=== PATIENT | female | born 1955 | race Caucasian/White ===

== ENCOUNTER 2017-10-09 04:50 | Outpatient (CLI) | payer OTHER ==
[~2017-10-09 04:50] MED LIST: AMLO2.5T2 PO; CYT5T PO; HYDR-3968 PO; LEVO125T69 PO; LOSA25TA96 PO; OMEG10006 PO; PRAS25CA7 PO; PROG200C7 PO; TESTOSTERONE CREAM TOP; [UNRECOGNIZED DRUG - CODE] PO; [UNRECOGNIZED DRUG - OTHER] PO
== END 2017-10-09 23:59 | disposition home or self-care (01) ==
LOC: DIABETIC 04:50
PROVIDERS: ATTEND Specialist
DX: R73.01 Impaired fasting glucose (principal); R06.3 Periodic breathing; E78.2 Mixed hyperlipidemia; I10 Essential (primary) hypertension; Z87.891 Personal history of nicotine dependence; Z86.19 Personal history of other infectious and parasitic diseases
CPT/HCPCS: G0108

== ENCOUNTER 2019-02-20 17:48 | Emergency (ER) | payer OTHER ==
[~2019-02-20] VITALS: Ht 157.5 cm; Wt 65.0 kg
[~2019-02-20 17:48] MED LIST changes: +BISA-155 PO; +MAGN296S50 PO; +PROG200C11 PO; -PROG200C7 PO
[2019-02-20 18:37] LABS: BASOPHILS % (AUTO) 0.9 % (0-1); EOSINOPHILS # (AUTO) 0.1 X10'3 (0-0.9); EOSINOPHILS % (AUTO) 1.2 % (0-6); HEMATOCRIT 40.1 % (35.0-45.0); HEMOGLOBIN 13.7 g/dl (12.0-16.0); LYMPHOCYTES # (AUTO) 2.2 X10'3 (1.1-4.8); MEAN CORPUSCULAR HEMOGLOBIN 31.2 PG (27.0-31.0); MEAN CORPUSCULAR HGB CONC 34.1 g/dL (33.0-36.5); MEAN CORPUSCULAR VOLUME 91.4 FL (78-98); MEAN PLATELET VOLUME 6.9 FL (7.4-10.4); MONOCYTES # (AUTO) 0.2 X10'3 (0-0.9); MONOCYTES % (AUTO) 3.2 % (2-12); NEUTROPHILS # (AUTO) 3.1 X10'3 (1.8-7.7); NEUTROPHILS % (AUTO) 55.7 % (42-75); PLATELET COUNT 322 X10'3 (140-440); RED BLOOD COUNT 4.39 X10'6 (4.20-5.60); RED CELL DISTRIBUTION WIDTH 13.9 % (11.5-14.5); WHITE BLOOD COUNT 5.5 X10'3 (4.5-11.0)
[2019-02-20 18:46] LABS: URINE HCG NEGATIVE (NEG)
[2019-02-20] MEDS ORDERED: LORazepam 1 MG tablet PO ONE (18:50)
[2019-02-20] MEDS ORDERED: acetaminophen 325mg tablet PO ONE (18:50)
[2019-02-20 18:54] LABS: ALANINE AMINOTRANSFERASE 46 U/L (12-78); ALKALINE PHOSPHATASE 67 IU/L (46-116); ANION GAP 13 (8-16); ASPARTATE AMINO TRANSFERASE 50 U/L (10-37); BILIRUBIN,TOTAL 0.3 MG/DL (0.1-1.0); BLOOD UREA NITROGEN 27 MG/DL (7-18); BUN/CREATININE RATIO 21.3 (6.6-38.0); CALCIUM 8.8 MG/DL (8.5-10.1); CHLORIDE 109 MMOL/L (99-107); CREATININE 1.27 MG/DL (0.40-0.90); GLUCOSE 96 MG/DL (70-104); POTASSIUM 3.9 MMOL/L (3.5-5.1); SODIUM 144 MMOL/L (135-145); TOTAL CARBON DIOXIDE 22.2 MMOL/L (24-32); TOTAL PROTEIN 8.1 G/DL (6.4-8.2); eGFR 43 ML/MIN
[2019-02-20 18:57] LABS: URINE AMPHETAMINE SCREEN NEGATIVE (Neg); URINE BARBITUATE SCREEN NEGATIVE (Neg); URINE BENZODIAZEPINES SCREEN NEGATIVE (Neg); URINE CANNABINOID SCREEN POSITIVE (Neg); URINE COCAINE SCREEN NEGATIVE (Neg); URINE METHADONE SCREEN NEGATIVE (Neg); URINE OPIATE SCREEN NEGATIVE (Neg); URINE PHENCYCLIDINE SCREEN NEGATIVE (Neg)
[2019-02-20 18:59] LABS: ETHANOL 0.294 GM/DL (0.0-0.010)
[2019-02-20] MEDS ORDERED: LEVO137T2 PO (19:07)
--- NOTE | 2019-02-20 20:00 | NUR ---
Packet faxed to [facility]. Confirmed receipt of packet with Karissa @ [facility] office.
[2019-02-20] MEDS ORDERED: ketorolac trometh inj. 60 MG/2 ML VIAL IM ONE (20:05)
--- NOTE | 2019-02-20 20:13 | NUR ---
pt was frustrated with pt next to her and threatened to "take her out" if she didn't shut up. pt moved to bed 23
--- NOTE | 2019-02-21 00:31 | NUR ---
pt is sleeping, rr unlabored, will continue to monitor
--- NOTE | 2019-02-21 01:19 | NUR ---
pt is sleeping, rr unlabored, will continue to monitor
--- NOTE | 2019-02-21 02:12 | NUR ---
Pt asleep on her back in no apparent distress. Respirations are even and unlabored.
[2019-02-21] MEDS ORDERED: ondansetron 4mg rapidly disintigrating tab PO ONE ×2 (03:00→08:10)
[2019-02-21 05:30] VITALS: BP 166/85
--- NOTE | 2019-02-21 06:28 | NUR ---
Patient sleeping on left side. No distress observed. Continue to monitor.
[2019-02-21] MEDS ORDERED: levoTHYROXINE 112mcg tablet PO SCH (07:00)
[2019-02-21] MEDS ORDERED: levoTHYROXINE 25mcg tablet PO SCH (07:00)
--- NOTE | 2019-02-21 07:41 | NUR ---
Patient ambulatory to BR, steady gait.
--- NOTE | 2019-02-21 07:48 | NUR ---
Staff heard patient with emesis in BR. RN to ask for Zofran. Continue to monitor.
--- NOTE | 2019-02-21 07:55 | NUR ---
Patient awake and alert. Patient denies SI/HI at this time. States she was just down and intoxicated. Patient states she has moral support. Continue to monitor.
[2019-02-21] MEDS ORDERED: losartan 50mg tablet PO SCH (08:00)
[2019-02-21] MEDS ORDERED: amLODIPine 5mg tablet PO SCH (08:00)
--- NOTE | 2019-02-21 08:40 | NUR ---
[facility], [place], evaluating patient.
== END 2019-02-21 09:30 | disposition home or self-care (01) ==
LOC: ER 17:50
DX: R45.851 Suicidal ideations (principal); F10.920 Alcohol use, unspecified with intoxication, uncomplicated; I12.9 Hypertensive chronic kidney disease with stage 1 through stage 4 chronic kidney disease, or unspecified chronic kidney disease; N18.9 Chronic kidney disease, unspecified; G89.29 Other chronic pain; F41.9 Anxiety disorder, unspecified; F32.9 Major depressive disorder, single episode, unspecified; F17.210 Nicotine dependence, cigarettes, uncomplicated; E03.9 Hypothyroidism, unspecified; Z90.49 Acquired absence of other specified parts of digestive tract; Z90.710 Acquired absence of both cervix and uterus; Z98.51 Tubal ligation status; Z98.890 Other specified postprocedural states; Z86.19 Personal history of other infectious and parasitic diseases; Z88.2 Allergy status to sulfonamides; Z79.899 Other long term (current) drug therapy; Y90.0 Blood alcohol level of less than 20 mg/100 ml
CPT/HCPCS: 36415; 80053; 80305; 80320; 81025; 84443; 85025; 96372; 99285; J1885

== ENCOUNTER 2019-05-29 15:19 | Emergency (ER) | payer OTHER ==
[~2019-05-29] VITALS: Ht 157.5 cm; Wt 60.0 kg
[~2019-05-29 15:19] MED LIST changes: -BISA-155 PO; -CYT5T PO; -HYDR-3968 PO; -LEVO125T69 PO; +LEVO137T2 PO; -MAGN296S50 PO; -OMEG10006 PO; -PRAS25CA7 PO; -PROG200C11 PO; -TESTOSTERONE CREAM TOP; -[UNRECOGNIZED DRUG - CODE] PO; -[UNRECOGNIZED DRUG - OTHER] PO
[2019-05-29 15:58] LABS: BASOPHILS # (AUTO) 0.1 X10'3 (0-0.2); BASOPHILS % (AUTO) 1.2 % (0-1); EOSINOPHILS % (AUTO) 0.5 % (0-6); HEMATOCRIT 42.7 % (35.0-45.0); HEMOGLOBIN 14.7 g/dl (12.0-16.0); LYMPHOCYTES % (AUTO) 26.8 % (21-51); MEAN CORPUSCULAR HEMOGLOBIN 31.7 PG (27.0-31.0); MEAN CORPUSCULAR HGB CONC 34.5 g/dL (33.0-36.5); MEAN PLATELET VOLUME 7.6 FL (7.4-10.4); MONOCYTES # (AUTO) 0.3 X10'3 (0-0.9); MONOCYTES % (AUTO) 4.5 % (2-12); PLATELET COUNT 310 X10'3 (140-440); RED BLOOD COUNT 4.64 X10'6 (4.20-5.60); RED CELL DISTRIBUTION WIDTH 13.9 % (11.5-14.5); WHITE BLOOD COUNT 7.5 X10'3 (4.5-11.0)
[2019-05-29 16:05] LABS: ALANINE AMINOTRANSFERASE 39 U/L (12-78); ALBUMIN 4.6 G/DL (3.4-5.0); ALBUMIN/GLOBULIN RATIO 1.2 (1.1-1.5); ALKALINE PHOSPHATASE 77 IU/L (46-116); ANION GAP 14 (8-16); ASPARTATE AMINO TRANSFERASE 31 U/L (10-37); BILIRUBIN,TOTAL 0.6 MG/DL (0.1-1.0); BLOOD UREA NITROGEN 21 MG/DL (7-18); BUN/CREATININE RATIO 15.4 (6.6-38.0); CALCIUM 10.4 MG/DL (8.5-10.1); CHLORIDE 100 MMOL/L (99-107); CREATININE 1.36 MG/DL (0.40-0.90); ETHANOL < 0.010 GM/DL (0.0-0.010); GLUCOSE 132 MG/DL (70-104); POTASSIUM 4.1 MMOL/L (3.5-5.1); SODIUM 139 MMOL/L (135-145); TOTAL CARBON DIOXIDE 25.3 MMOL/L (24-32); TOTAL PROTEIN 8.6 G/DL (6.4-8.2); eGFR 39 ML/MIN
[2019-05-29] MEDS ORDERED: normal saline 1000ml 1,000 ML IV ONE (16:10)
[2019-05-29] MEDS ORDERED: diphenhydrAMINE 50 mg/ml inj IV ONE (16:35)
[2019-05-29] MEDS ORDERED: proCHLORperazine 10 MG/2 ml inj IV ONE (16:35)
[2019-05-29 16:39] LABS: LIPASE 190 U/L (73-393)
[2019-05-29 18:20] LABS: CLARITY,URINE CLEAR (Clear); COLOR,URINE YELLOW (Yellow); GLUCOSE, URINE NEGATIVE (Neg); KETONES,URINE TRACE mg/dl (Neg); LEUKOCYTE ESTERASE ,URINE NEGATIVE (Neg); NITRITES, URINE NEGATIVE (Neg); OCCULT BLOOD,URINE TRACE-INTACT (Neg); PH,URINE 7.5 (4.8-8.0); PROTEIN,URINE 100 mg/dl (Neg); UROBILINOGEN,URINE 0.2 E.U/dL (0.2-1.0)
[2019-05-29 18:25] LABS: UA COLLECTION TYPE CLN CATCH MIDSTREAM
[2019-05-29 18:28] LABS: BACTERIA,URINE NONE SEEN /HPF (Neg); MUCUS STRANDS NONE SEEN /LPF (Neg); RBC,URINE 0-2 /HPF (0-2); SQUAMOUS EPITHELIAL CELL,UR FEW /LPF (FEW); TRANSITIONAL EPI CELLS,URINE FEW /HPF; WBC,URINE 0-4 /HPF (0-4)
[2019-05-29 18:31] LABS: URINE AMPHETAMINE SCREEN NEGATIVE (Neg); URINE BARBITUATE SCREEN NEGATIVE (Neg); URINE BENZODIAZEPINES SCREEN NEGATIVE (Neg); URINE CANNABINOID SCREEN POSITIVE (Neg); URINE COCAINE SCREEN NEGATIVE (Neg); URINE METHADONE SCREEN NEGATIVE (Neg); URINE OPIATE SCREEN NEGATIVE (Neg); URINE PHENCYCLIDINE SCREEN NEGATIVE (Neg)
[2019-05-29] MEDS ORDERED: FAMO-128 PO (18:33)
[2019-05-29] MEDS ORDERED: ONDA4TAB6 PO (18:33)
[2019-05-29 18:44] VITALS: BP 170/85
== END 2019-05-29 18:45 | disposition home or self-care (01) ==
LOC: ER 15:19
DX: K29.20 Alcoholic gastritis without bleeding (principal); F10.10 Alcohol abuse, uncomplicated; I12.9 Hypertensive chronic kidney disease with stage 1 through stage 4 chronic kidney disease, or unspecified chronic kidney disease; N18.9 Chronic kidney disease, unspecified; F32.9 Major depressive disorder, single episode, unspecified; F41.9 Anxiety disorder, unspecified; G89.29 Other chronic pain; Z90.49 Acquired absence of other specified parts of digestive tract; Z90.710 Acquired absence of both cervix and uterus; Z98.51 Tubal ligation status; Z98.890 Other specified postprocedural states; Z88.2 Allergy status to sulfonamides; Z79.899 Other long term (current) drug therapy; Y90.0 Blood alcohol level of less than 20 mg/100 ml
CPT/HCPCS: 36415; 80053; 80305; 80320; 81001; 83690; 85025; 96361; 96374; 96375; 99283; J0780; J1200; J7030

== ENCOUNTER 2019-08-18 11:28 | Emergency (ER) | payer OTHER ==
[~2019-08-18] VITALS: Ht 157.5 cm; Wt 68.7 kg
[~2019-08-18 11:28] MED LIST changes: +FAMO-128 PO; +ONDA4TAB6 PO
[2019-08-18 11:39] VITALS: BP 148/77
[2019-08-18 12:03] LABS: BASOPHILS # (AUTO) 0.1 X10'3 (0-0.2); BASOPHILS % (AUTO) 1.2 % (0-1); EOSINOPHILS # (AUTO) 0.3 X10'3 (0-0.9); EOSINOPHILS % (AUTO) 5.4 % (0-6); HEMATOCRIT 38.4 % (35.0-45.0); HEMOGLOBIN 13.2 g/dl (12.0-16.0); LYMPHOCYTES # (AUTO) 1.4 X10'3 (1.1-4.8); MEAN CORPUSCULAR HGB CONC 34.3 g/dL (33.0-36.5); MEAN CORPUSCULAR VOLUME 90.5 FL (78-98); MEAN PLATELET VOLUME 7.6 FL (7.4-10.4); MONOCYTES # (AUTO) 0.2 X10'3 (0-0.9); MONOCYTES % (AUTO) 4.9 % (2-12); NEUTROPHILS # (AUTO) 2.9 X10'3 (1.8-7.7); NEUTROPHILS % (AUTO) 59.5 % (42-75); PLATELET COUNT 295 X10'3 (140-440); RED BLOOD COUNT 4.25 X10'6 (4.20-5.60); RED CELL DISTRIBUTION WIDTH 13.7 % (11.5-14.5); WHITE BLOOD COUNT 4.8 X10'3 (4.5-11.0)
[2019-08-18 12:22] LABS: ALANINE AMINOTRANSFERASE 32 U/L (12-78); ALBUMIN 3.8 G/DL (3.4-5.0); ALKALINE PHOSPHATASE 71 IU/L (46-116); ANION GAP 14 (8-16); ASPARTATE AMINO TRANSFERASE 30 U/L (10-37); BILIRUBIN,TOTAL 0.2 MG/DL (0.1-1.0); BLOOD UREA NITROGEN 25 MG/DL (7-18); BUN/CREATININE RATIO 19.1 (6.6-38.0); CALCIUM 9.2 MG/DL (8.5-10.1); CHLORIDE 106 MMOL/L (99-107); CREATININE 1.31 MG/DL (0.40-0.90); GLUCOSE 113 MG/DL (70-104); LIPASE 141 U/L (73-393); POTASSIUM 4.5 MMOL/L (3.5-5.1); SODIUM 142 MMOL/L (135-145); TOTAL CARBON DIOXIDE 22.1 MMOL/L (24-32); TOTAL PROTEIN 7.6 G/DL (6.4-8.2); eGFR 41 ML/MIN
[2019-08-18 14:16] LABS: CLARITY,URINE CLEAR (Clear); COLOR,URINE YELLOW (Yellow); GLUCOSE, URINE NEGATIVE (Neg); KETONES,URINE NEGATIVE (Neg); LEUKOCYTE ESTERASE ,URINE NEGATIVE (Neg); NITRITES, URINE NEGATIVE (Neg); OCCULT BLOOD,URINE NEGATIVE (Neg); PROTEIN,URINE 100 mg/dl (Neg); UROBILINOGEN,URINE 0.2 E.U/dL (0.2-1.0)
[2019-08-18 14:21] LABS: UA COLLECTION TYPE CLN CATCH MIDSTREAM
[2019-08-18 14:29] LABS: BACTERIA,URINE NONE SEEN /HPF (Neg); MUCUS STRANDS NONE SEEN /LPF (Neg); RBC,URINE NONE SEEN /HPF (0-2); SQUAMOUS EPITHELIAL CELL,UR FEW /LPF (FEW); WBC,URINE 0-4 /HPF (0-4)
[2019-08-20] MEDS ORDERED: METR500T PO (10:49)
[2019-08-20] MEDS ORDERED: NAPR-56 PO (10:49)
[2019-08-20] MEDS ORDERED: LEVO500T2 PO (10:49)
[2019-08-20] MEDS ORDERED: ACAM333T8 PO (19:06)
[2019-08-20] MEDS ORDERED: [UNRECOGNIZED DRUG - OTHER] PO (19:06)
[2019-08-20] MEDS ORDERED: MIRT15TA8 PO (19:06)
[2019-08-20] MEDS ORDERED: NALT50TA PO (19:06)
[2019-08-21] MEDS ORDERED: PROP20TA6 PO (08:30)
[2019-08-21] MEDS ORDERED: CIPR-230 PO (13:24)
[2019-08-21] MEDS ORDERED: METR-159 PO (13:24)
== END 2019-08-18 17:18 | disposition left against medical advice (07) ==
LOC: ER 11:28
DX: M54.5 Low back pain (principal); R79.9 Abnormal finding of blood chemistry, unspecified; Z53.21 Procedure and treatment not carried out due to patient leaving prior to being seen by health care provider
CPT/HCPCS: 36415; 80053; 81001; 83690; 85025

== ENCOUNTER 2019-08-27 03:50 | Emergency (ER) | payer OTHER ==
[~2019-08-27] VITALS: Ht 157.5 cm; Wt 65.9 kg
[~2019-08-27 03:50] MED LIST changes: +ACAM333T8 PO; +CIPR-230 PO; -FAMO-128 PO; +METR-159 PO; +MIRT15TA8 PO; +NALT50TA PO; -ONDA4TAB6 PO; +PROP20TA6 PO; +[UNRECOGNIZED DRUG - OTHER] PO
[2019-08-27 04:31] LABS: ALANINE AMINOTRANSFERASE 21 U/L (12-78); ALBUMIN 3.5 G/DL (3.4-5.0); ALKALINE PHOSPHATASE 63 IU/L (46-116); ANION GAP 7 (8-16); ASPARTATE AMINO TRANSFERASE 16 U/L (10-37); BILIRUBIN,TOTAL 0.2 MG/DL (0.1-1.0); BLOOD UREA NITROGEN 63 MG/DL (7-18); BUN/CREATININE RATIO 36.4 (6.6-38.0); CHLORIDE 106 MMOL/L (99-107); CREATININE 1.73 MG/DL (0.40-0.90); GLUCOSE 95 MG/DL (70-104); POTASSIUM 4.9 MMOL/L (3.5-5.1); SODIUM 139 MMOL/L (135-145); TOTAL CARBON DIOXIDE 25.7 MMOL/L (24-32); eGFR 30 ML/MIN
[2019-08-27 04:41] LABS: BASOPHILS # (AUTO) 0.1 X10'3 (0-0.2); BASOPHILS % (AUTO) 1.3 % (0-1); EOSINOPHILS # (AUTO) 0.3 X10'3 (0-0.9); EOSINOPHILS % (AUTO) 4.9 % (0-6); HEMATOCRIT 35.1 % (35.0-45.0); HEMOGLOBIN 12.1 g/dl (12.0-16.0); LYMPHOCYTES # (AUTO) 1.8 X10'3 (1.1-4.8); LYMPHOCYTES % (AUTO) 33.8 % (21-51); MEAN CORPUSCULAR HEMOGLOBIN 30.8 PG (27.0-31.0); MEAN CORPUSCULAR HGB CONC 34.4 g/dL (33.0-36.5); MEAN CORPUSCULAR VOLUME 89.7 FL (78-98); MEAN PLATELET VOLUME 7.6 FL (7.4-10.4); MONOCYTES # (AUTO) 0.5 X10'3 (0-0.9); MONOCYTES % (AUTO) 9.3 % (2-12); NEUTROPHILS # (AUTO) 2.6 X10'3 (1.8-7.7); NEUTROPHILS % (AUTO) 50.7 % (42-75); PLATELET COUNT 293 X10'3 (140-440); RED BLOOD COUNT 3.92 X10'6 (4.20-5.60); RED CELL DISTRIBUTION WIDTH 13.4 % (11.5-14.5); WHITE BLOOD COUNT 5.2 X10'3 (4.5-11.0)
[2019-08-27 05:03] VITALS: BP 110/62
== END 2019-08-27 05:04 | disposition home or self-care (01) ==
LOC: ER 03:51
DX: M79.602 Pain in left arm (principal); I12.9 Hypertensive chronic kidney disease with stage 1 through stage 4 chronic kidney disease, or unspecified chronic kidney disease; N18.9 Chronic kidney disease, unspecified; G89.29 Other chronic pain; F41.9 Anxiety disorder, unspecified; F32.9 Major depressive disorder, single episode, unspecified; Z98.51 Tubal ligation status; Z98.890 Other specified postprocedural states; Z90.49 Acquired absence of other specified parts of digestive tract; Z90.710 Acquired absence of both cervix and uterus; Z88.2 Allergy status to sulfonamides; Z79.2 Long term (current) use of antibiotics; Z79.899 Other long term (current) drug therapy
CPT/HCPCS: 36415; 71045; 80053; 84484; 85025; 93005; 99285

== ENCOUNTER 2019-09-18 09:39 | Emergency (ER) | payer OTHER ==
[~2019-09-18] VITALS: Ht 157.5 cm; Wt 70.5 kg
[2019-09-18] MEDS ORDERED: ondansetron/PF 4mg/2ml inj IV ONE (10:00)
[2019-09-18] MEDS ORDERED: morphine 4 MG/ML inj SYRINge IV PRN (10:00)
[2019-09-18] MEDS ORDERED: normal saline 1000ml 1,000 ML IV ONE ×2 (10:40→11:30)
[2019-09-18] MEDS: proCHLORperazine 10 MG/2 ml inj IV ONE ×2 (10:46→11:38)
[2019-09-18 10:48] LABS: BASOPHILS % (AUTO) 0.3 % (0-1); EOSINOPHILS % (AUTO) 0.8 % (0-6); HEMATOCRIT 40.2 % (35.0-45.0); HEMOGLOBIN 13.9 g/dl (12.0-16.0); LYMPHOCYTES # (AUTO) 1.2 X10'3 (1.1-4.8); LYMPHOCYTES % (AUTO) 21.2 % (21-51); MEAN CORPUSCULAR HEMOGLOBIN 31.1 PG (27.0-31.0); MEAN CORPUSCULAR HGB CONC 34.5 g/dL (33.0-36.5); MONOCYTES # (AUTO) 0.3 X10'3 (0-0.9); MONOCYTES % (AUTO) 5.5 % (2-12); NEUTROPHILS # (AUTO) 4.2 X10'3 (1.8-7.7); NEUTROPHILS % (AUTO) 72.2 % (42-75); PLATELET COUNT 192 X10'3 (140-440); RED BLOOD COUNT 4.47 X10'6 (4.20-5.60); WHITE BLOOD COUNT 5.9 X10'3 (4.5-11.0)
[2019-09-18 11:00] LABS: ALANINE AMINOTRANSFERASE 34 U/L (12-78); ALBUMIN 4.4 G/DL (3.4-5.0); ALBUMIN/GLOBULIN RATIO 1.2 (1.1-1.5); ALKALINE PHOSPHATASE 66 IU/L (46-116); ANION GAP 10 (8-16); ASPARTATE AMINO TRANSFERASE 32 U/L (10-37); BILIRUBIN,TOTAL 0.8 MG/DL (0.1-1.0); BLOOD UREA NITROGEN 30 MG/DL (7-18); BUN/CREATININE RATIO 17.4 (6.6-38.0); CALCIUM 9.8 MG/DL (8.5-10.1); CHLORIDE 92 MMOL/L (99-107); CREATININE 1.72 MG/DL (0.40-0.90); ETHANOL < 0.010 GM/DL (0.0-0.010); GLUCOSE 116 MG/DL (70-104); LIPASE 278 U/L (73-393); PHOSPHORUS 3.5 MG/DL (2.3-4.5); POTASSIUM 3.8 MMOL/L (3.5-5.1); SODIUM 127 MMOL/L (135-145); TOTAL CARBON DIOXIDE 24.7 MMOL/L (24-32); TOTAL PROTEIN 8.2 G/DL (6.4-8.2); eGFR 30 ML/MIN
[2019-09-18] MEDS ORDERED: mag hydrox/Alum hydrox/simeth 30ml oral suspension PO ONE (11:10)
[2019-09-18] MEDS ORDERED: LIDOcaine Viscous 15ml cup MM ONE (11:10)
[2019-09-18] MEDS ORDERED: pantoprazole 40mg Tablet.DR PO ONE (11:10)
[2019-09-18] MEDS ORDERED: ONDA8TAB13 PO (11:29)
[2019-09-18 11:58] VITALS: BP 141/76
== END 2019-09-18 12:12 | disposition home or self-care (01) ==
LOC: ER 09:39
DX: R10.13 Epigastric pain (principal); R11.2 Nausea with vomiting, unspecified; F12.90 Cannabis use, unspecified, uncomplicated; I12.9 Hypertensive chronic kidney disease with stage 1 through stage 4 chronic kidney disease, or unspecified chronic kidney disease; N18.9 Chronic kidney disease, unspecified; G89.29 Other chronic pain; F41.9 Anxiety disorder, unspecified; F32.9 Major depressive disorder, single episode, unspecified; Z86.19 Personal history of other infectious and parasitic diseases; Z87.19 Personal history of other diseases of the digestive system; Z90.49 Acquired absence of other specified parts of digestive tract; Z90.710 Acquired absence of both cervix and uterus; Z98.51 Tubal ligation status; Z88.2 Allergy status to sulfonamides; Z79.899 Other long term (current) drug therapy
CPT/HCPCS: 36415; 80053; 80320; 83605; 83690; 84100; 85025; 96361; 96374; 96375; 99284; J0780; J2270; J2405; J7030

== ENCOUNTER 2019-10-06 08:11 | Emergency (ER) | payer OTHER ==
[~2019-10-06] VITALS: Ht 157.5 cm; Wt 68.2 kg
[~2019-10-06 08:11] MED LIST changes: -CIPR-230 PO; -METR-159 PO; +ONDA8TAB13 PO
[2019-10-06] MEDS ORDERED: normal saline 1000ML IV soln IVB ONE ×2 (08:20→09:45)
[2019-10-06] MEDS ORDERED: LORazepam 2 mg/ml vial IV ONE ×2 (08:20→09:45)
[2019-10-06] MEDS: morphine 2 MG/ML inj. syringe IV PRN ×3 (08:30→10:04)
[2019-10-06 08:40] LABS: BASOPHILS % (AUTO) 0.4 % (0-1); EOSINOPHILS % (AUTO) 0.2 % (0-6); HEMATOCRIT 41.8 % (35.0-45.0); HEMOGLOBIN 14.2 g/dl (12.0-16.0); LYMPHOCYTES # (AUTO) 1.5 X10'3 (1.1-4.8); LYMPHOCYTES % (AUTO) 13.4 % (21-51); MEAN CORPUSCULAR HEMOGLOBIN 30.3 PG (27.0-31.0); MEAN CORPUSCULAR HGB CONC 33.9 g/dL (33.0-36.5); MEAN CORPUSCULAR VOLUME 89.3 FL (78-98); MEAN PLATELET VOLUME 7.4 FL (7.4-10.4); MONOCYTES # (AUTO) 0.2 X10'3 (0-0.9); MONOCYTES % (AUTO) 1.6 % (2-12); NEUTROPHILS # (AUTO) 9.7 X10'3 (1.8-7.7); NEUTROPHILS % (AUTO) 84.4 % (42-75); PLATELET COUNT 341 X10'3 (140-440); RED BLOOD COUNT 4.69 X10'6 (4.20-5.60); RED CELL DISTRIBUTION WIDTH 13.9 % (11.5-14.5); WHITE BLOOD COUNT 11.4 X10'3 (4.5-11.0)
[2019-10-06 08:49] LABS: PARTIAL THROMBOPLASTIN TIME 25 SECONDS (22-32)
[2019-10-06 08:53] LABS: ALANINE AMINOTRANSFERASE 36 U/L (12-78); ALBUMIN 4.6 G/DL (3.4-5.0); ALBUMIN/GLOBULIN RATIO 0.9 (1.1-1.5); ALKALINE PHOSPHATASE 86 IU/L (46-116); ANION GAP 21 (8-16); ASPARTATE AMINO TRANSFERASE 45 U/L (10-37); BILIRUBIN,TOTAL 0.7 MG/DL (0.1-1.0); BLOOD UREA NITROGEN 27 MG/DL (7-18); BUN/CREATININE RATIO 17.5 (6.6-38.0); CALCIUM 9.5 MG/DL (8.5-10.1); CHLORIDE 105 MMOL/L (99-107); CREATININE 1.54 MG/DL (0.40-0.90); ETHANOL 0.046 GM/DL (0.0-0.010); GLUCOSE 106 MG/DL (70-104); LIPASE 452 U/L (73-393); MAGNESIUM 1.6 MG/DL (1.5-2.4); POTASSIUM 3.9 MMOL/L (3.5-5.1); SODIUM 142 MMOL/L (135-145); TOTAL PROTEIN 9.5 G/DL (6.4-8.2); eGFR 34 ML/MIN
[2019-10-06 09:35] LABS: CLARITY,URINE CLEAR (Clear); COLOR,URINE YELLOW (Yellow); GLUCOSE, URINE NEGATIVE (Neg); KETONES,URINE NEGATIVE (Neg); LEUKOCYTE ESTERASE ,URINE NEGATIVE (Neg); NITRITES, URINE NEGATIVE (Neg); OCCULT BLOOD,URINE TRACE-LYSED (Neg); PROTEIN,URINE 100 mg/dl (Neg); UROBILINOGEN,URINE 0.2 E.U/dL (0.2-1.0)
[2019-10-06 09:37] LABS: UA COLLECTION TYPE CLN CATCH MIDSTREAM
[2019-10-06 09:40] LABS: URINE AMPHETAMINE SCREEN NEGATIVE (Neg); URINE BARBITUATE SCREEN NEGATIVE (Neg); URINE BENZODIAZEPINES SCREEN NEGATIVE (Neg); URINE CANNABINOID SCREEN NEGATIVE (Neg); URINE COCAINE SCREEN NEGATIVE (Neg); URINE METHADONE SCREEN NEGATIVE (Neg); URINE OPIATE SCREEN POSITIVE (Neg); URINE PHENCYCLIDINE SCREEN NEGATIVE (Neg)
[2019-10-06 09:45] LABS: SQUAMOUS EPITHELIAL CELL,UR MODERATE /LPF (FEW)
[2019-10-06] MEDS ORDERED: mag hydrox/Alum hydrox/simeth 30ml oral suspension PO ONE (09:45)
[2019-10-06] MEDS ORDERED: LIDOcaine Viscous 15ml cup MM ONE (09:45)
[2019-10-06] MEDS ORDERED: chlordiazePOXIDE 25mg capsule PO ONE (09:45)
[2019-10-06 09:47] LABS: BACTERIA,URINE FEW /HPF (Neg); RBC,URINE 0-2 /HPF (0-2)
--- NOTE | 2019-10-06 10:44 | NUR ---
alena Guerra [phone]
[2019-10-06] MEDS ORDERED: CHLO25CA10 PO (11:13)
--- NOTE | 2019-10-06 11:25 | NUR ---
PT GIVEN JELLO FOR ORAL CHALLENGE AND TOLERATED WELL.
[2019-10-06 12:04] VITALS: BP 188/116
[2019-10-07] MEDS ORDERED: CEPH500C5 PO (16:23)
[2019-10-07] MEDS ORDERED: ONDA4TAB12 PO (16:23)
[2019-10-07] MEDS ORDERED: HYDR-3965 PO (16:23)
== END 2019-10-06 12:07 | disposition home or self-care (01) ==
LOC: ER 08:12
DX: K29.20 Alcoholic gastritis without bleeding (principal); F10.20 Alcohol dependence, uncomplicated; K85.90 Acute pancreatitis without necrosis or infection, unspecified; R11.2 Nausea with vomiting, unspecified; I12.9 Hypertensive chronic kidney disease with stage 1 through stage 4 chronic kidney disease, or unspecified chronic kidney disease; N18.9 Chronic kidney disease, unspecified; G89.29 Other chronic pain; F12.90 Cannabis use, unspecified, uncomplicated; Z90.49 Acquired absence of other specified parts of digestive tract; Z90.710 Acquired absence of both cervix and uterus; Z98.51 Tubal ligation status; Z88.2 Allergy status to sulfonamides; Z79.899 Other long term (current) drug therapy; Y90.0 Blood alcohol level of less than 20 mg/100 ml
CPT/HCPCS: 36415; 80053; 80305; 80320; 81001; 83690; 83735; 85025; 85610; 85730; 87088; 93005; 96361; 96374; 96375; 96376; 99284; J2060; J2270; J7030

== ENCOUNTER 2019-10-07 12:20 | Emergency (ER) | payer OTHER ==
[~2019-10-07] VITALS: Ht 160 cm; Wt 80.0 kg
[~2019-10-07 12:20] MED LIST changes: +CHLO25CA10 PO
[2019-10-07] MEDS ORDERED: LORazepam 2 mg/ml vial IV ONE (14:05)
[2019-10-07] MEDS ORDERED: metoclopramide 5 mg/ml inj IV ONE (14:05)
[2019-10-07] MEDS ORDERED: normal saline 1000ML IV soln IVB ONE ×3 (14:05→14:50)
[2019-10-07] MEDS ORDERED: diphenhydrAMINE 50 mg/ml inj IV ONE (14:05)
--- NOTE | 2019-10-07 14:29 | NUR ---
pt is unable to void at this time
[2019-10-07 14:44] LABS: BASOPHILS # (AUTO) 0.1 X10'3 (0-0.2); BASOPHILS % (AUTO) 0.9 % (0-1); EOSINOPHILS % (AUTO) 0.3 % (0-6); HEMATOCRIT 39.8 % (35.0-45.0); HEMOGLOBIN 13.5 g/dl (12.0-16.0); LYMPHOCYTES # (AUTO) 1.3 X10'3 (1.1-4.8); LYMPHOCYTES % (AUTO) 20.9 % (21-51); MEAN CORPUSCULAR HEMOGLOBIN 30.5 PG (27.0-31.0); MEAN CORPUSCULAR HGB CONC 33.9 g/dL (33.0-36.5); MEAN CORPUSCULAR VOLUME 89.9 FL (78-98); MEAN PLATELET VOLUME 7.5 FL (7.4-10.4); MONOCYTES # (AUTO) 0.4 X10'3 (0-0.9); MONOCYTES % (AUTO) 6.4 % (2-12); NEUTROPHILS # (AUTO) 4.4 X10'3 (1.8-7.7); NEUTROPHILS % (AUTO) 71.5 % (42-75); PLATELET COUNT 185 X10'3 (140-440); RED BLOOD COUNT 4.42 X10'6 (4.20-5.60); RED CELL DISTRIBUTION WIDTH 13.9 % (11.5-14.5); WHITE BLOOD COUNT 6.1 X10'3 (4.5-11.0)
[2019-10-07 14:57] LABS: ALANINE AMINOTRANSFERASE 39 U/L (12-78); ALBUMIN 4.4 G/DL (3.4-5.0); ALBUMIN/GLOBULIN RATIO 1.2 (1.1-1.5); ALKALINE PHOSPHATASE 82 IU/L (46-116); AMYLASE 86 U/L (25-115); ANION GAP 12 (8-16); ASPARTATE AMINO TRANSFERASE 37 U/L (10-37); BILIRUBIN,TOTAL 1.3 MG/DL (0.1-1.0); BLOOD UREA NITROGEN 28 MG/DL (7-18); BUN/CREATININE RATIO 15.5 (6.6-38.0); CALCIUM 9.7 MG/DL (8.5-10.1); CHLORIDE 100 MMOL/L (99-107); CREATININE 1.81 MG/DL (0.40-0.90); GLUCOSE 97 MG/DL (70-104); LIPASE 663 U/L (73-393); POTASSIUM 3.5 MMOL/L (3.5-5.1); SODIUM 136 MMOL/L (135-145); TOTAL CARBON DIOXIDE 23.9 MMOL/L (24-32); TOTAL PROTEIN 8.2 G/DL (6.4-8.2); eGFR 28 ML/MIN
[2019-10-07 15:39] LABS: CLARITY,URINE CLEAR (Clear); COLOR,URINE YELLOW (Yellow); GLUCOSE, URINE NEGATIVE (Neg); KETONES,URINE TRACE mg/dl (Neg); LEUKOCYTE ESTERASE ,URINE TRACE (Neg); NITRITES, URINE NEGATIVE (Neg); OCCULT BLOOD,URINE TRACE-LYSED (Neg); PROTEIN,URINE 100 mg/dl (Neg); UA COLLECTION TYPE CLN CATCH MIDSTREAM; UROBILINOGEN,URINE 0.2 E.U/dL (0.2-1.0)
[2019-10-07 15:44] LABS: BACTERIA,URINE FEW /HPF (Neg); HYALINE CASTS 0-3 /LPF (NEGATIVE); RBC,URINE 0-2 /HPF (0-2); SQUAMOUS EPITHELIAL CELL,UR FEW /LPF (FEW); WBC CLUMPS,URINE FEW /HPF (NEGATIVE)
[2019-10-07] MEDS ORDERED: CefTRIAXone 2gm/D5W 50ml 50 ML IV ONE (15:50)
--- NOTE | 2019-10-07 16:11 | NUR ---
pt able to give ua, pharmacy was called for abx,
[2019-10-07] MEDS ORDERED: CEPH500C5 PO (16:23)
[2019-10-07] MEDS ORDERED: ONDA4TAB12 PO (16:23)
[2019-10-07] MEDS ORDERED: HYDR-3965 PO (16:23)
[2019-10-07 17:32] VITALS: BP 145/90
== END 2019-10-07 17:34 | disposition home or self-care (01) ==
LOC: ER 12:20
DX: N39.0 Urinary tract infection, site not specified (principal); R14.0 Abdominal distension (gaseous); I12.9 Hypertensive chronic kidney disease with stage 1 through stage 4 chronic kidney disease, or unspecified chronic kidney disease; N18.9 Chronic kidney disease, unspecified; R11.2 Nausea with vomiting, unspecified; G89.29 Other chronic pain; F41.9 Anxiety disorder, unspecified; F32.9 Major depressive disorder, single episode, unspecified; F17.210 Nicotine dependence, cigarettes, uncomplicated; F10.10 Alcohol abuse, uncomplicated; F12.90 Cannabis use, unspecified, uncomplicated; Z98.51 Tubal ligation status; Z86.19 Personal history of other infectious and parasitic diseases; Z90.49 Acquired absence of other specified parts of digestive tract; Z90.710 Acquired absence of both cervix and uterus; Z98.890 Other specified postprocedural states; Z88.2 Allergy status to sulfonamides; Z79.899 Other long term (current) drug therapy
CPT/HCPCS: 36415; 80053; 81001; 82150; 83605; 83690; 84145; 85025; 85610; 87088; 96361; 96365; 96375; 99285; J0696; J1200; J2060; J2765; J7030

== ENCOUNTER 2019-10-16 16:58 | Inpatient (IN) | payer OTHER ==
[~2019-10-16] VITALS: Ht 157.5 cm; Wt 68.2 kg
[~2019-10-16 16:58] MED LIST changes: +CEPH500C5 PO; +HYDR-3965 PO; +ONDA4TAB12 PO
[2019-10-16 17:54] LABS: CLARITY,URINE SLIGHTLY CLOUDY (Clear); COLOR,URINE YELLOW (Yellow); GLUCOSE, URINE NEGATIVE (Neg); KETONES,URINE TRACE mg/dl (Neg); LEUKOCYTE ESTERASE ,URINE SMALL (Neg); NITRITES, URINE NEGATIVE (Neg); OCCULT BLOOD,URINE TRACE-INTACT (Neg); PH,URINE 5.5 (4.8-8.0); PROTEIN,URINE 100 mg/dl (Neg); UROBILINOGEN,URINE 0.2 E.U/dL (0.2-1.0)
[2019-10-16 18:01] LABS: UA COLLECTION TYPE CLN CATCH MIDSTREAM
[2019-10-16 18:03] LABS: BASOPHILS # (AUTO) 0.1 X10'3 (0-0.2); BASOPHILS % (AUTO) 0.9 % (0-1); EOSINOPHILS # (AUTO) 0.1 X10'3 (0-0.9); EOSINOPHILS % (AUTO) 0.9 % (0-6); HEMATOCRIT 38.6 % (35.0-45.0); HEMOGLOBIN 12.9 g/dl (12.0-16.0); LYMPHOCYTES # (AUTO) 1.2 X10'3 (1.1-4.8); LYMPHOCYTES % (AUTO) 18.7 % (21-51); MEAN CORPUSCULAR HEMOGLOBIN 30.6 PG (27.0-31.0); MEAN CORPUSCULAR HGB CONC 33.4 g/dL (33.0-36.5); MEAN CORPUSCULAR VOLUME 91.6 FL (78-98); MEAN PLATELET VOLUME 7.9 FL (7.4-10.4); MONOCYTES # (AUTO) 0.7 X10'3 (0-0.9); MONOCYTES % (AUTO) 10.3 % (2-12); NEUTROPHILS # (AUTO) 4.6 X10'3 (1.8-7.7); NEUTROPHILS % (AUTO) 69.2 % (42-75); PLATELET COUNT 238 X10'3 (140-440); RED BLOOD COUNT 4.21 X10'6 (4.20-5.60); RED CELL DISTRIBUTION WIDTH 14.5 % (11.5-14.5); WHITE BLOOD COUNT 6.6 X10'3 (4.5-11.0)
[2019-10-16 18:08] LABS: FINE GRANULAR CAST 0-3 /LPF (NEGATIVE); SQUAMOUS EPITHELIAL CELL,UR MANY /LPF (FEW)
[2019-10-16 18:10] LABS: TRANSITIONAL EPI CELLS,URINE FEW /HPF
[2019-10-16 18:12] LABS: WBC CLUMPS,URINE FEW /HPF (NEGATIVE); WBC,URINE 30-50 /HPF (0-4)
[2019-10-16 18:13] LABS: ALANINE AMINOTRANSFERASE 21 U/L (12-78); ALBUMIN 3.9 G/DL (3.4-5.0); ALBUMIN/GLOBULIN RATIO 1.1 (1.1-1.5); ALKALINE PHOSPHATASE 57 IU/L (46-116); ANION GAP 14 (8-16); ASPARTATE AMINO TRANSFERASE 22 U/L (10-37); BILIRUBIN,TOTAL 0.5 MG/DL (0.1-1.0); BLOOD UREA NITROGEN 29 MG/DL (7-18); CALCIUM 9.4 MG/DL (8.5-10.1); CHLORIDE 97 MMOL/L (99-107); CREATININE 4.12 MG/DL (0.40-0.90); GLUCOSE 104 MG/DL (70-104); LIPASE 157 U/L (73-393); POTASSIUM 3.4 MMOL/L (3.5-5.1); SODIUM 135 MMOL/L (135-145); TOTAL CARBON DIOXIDE 24.5 MMOL/L (24-32); TOTAL PROTEIN 7.5 G/DL (6.4-8.2); eGFR 11 ML/MIN
[2019-10-16 18:15] LABS: BACTERIA,URINE 1+ /HPF (Neg); URIC ACID CRYSTALS FEW /HPF (NEGATIVE)
[2019-10-16] MEDS ORDERED: normal saline 1000ML IV soln IVB ONE (19:00)
[2019-10-16] MEDS ORDERED: normal saline 1000ml 1,000 ML IV ONE (19:06)
[2019-10-16] MEDS: normal saline 1000ml 1,000 ML IV SCH (20:13)
[2019-10-16] MEDS ORDERED: ondansetron/PF 4mg/2ml inj IV PRN (20:15)
[2019-10-16] MEDS ORDERED: acetaminophen 325mg tablet PO PRN ×2 (20:15)
[2019-10-16] MEDS ORDERED: magnesium hydroxide 30ml (MOM) UD suspension PO PRN (20:15)
[2019-10-16] MEDS ORDERED: morphine 2 MG/ML inj. syringe IV PRN ×2 (20:15)
[2019-10-16] MEDS ORDERED: HYDROcodone/acetaminophen 5mg/325mg tablet PO PRN (20:15)
[2019-10-16] MEDS ORDERED: HYDROcodone/acetaminophen 10/325mg tab PO PRN (20:15)
[2019-10-16] MEDS ORDERED: mag hydrox/Alum hydrox/simeth 30ml oral suspension PO PRN (20:15)
[2019-10-16 21:00] VITALS: BP 92/54
--- NOTE | 2019-10-16 21:30 | NUR ---
Patient arrived to floor. Oriented to environment. F/C in place with very little urine bag. Will continue to monitor.
[2019-10-16 23:00] VITALS: BP 80/45
[2019-10-17] MEDS ORDERED: normal saline 1000ml 1,000 ML IV ONE (00:20)
[2019-10-17 00:30] VITALS: BP 94/50
--- NOTE | 2019-10-17 01:00 | NUR ---
Patient Bp check @2330 80/45 manually. Patient asymptomatic awake and talking states she doesn't feel any different other than tired. Dr. Nunez notified of her low BP and low urine output of only 30ml since her arrival @2130 and order 1L bolus. Patient BP rechecked manully after 1L bolus 94/50, HR 70. Will continue with care.
[2019-10-17 05:33] LABS: ALBUMIN 2.9 G/DL (3.4-5.0); ANION GAP 12 (8-16); BLOOD UREA NITROGEN 32 MG/DL (7-18); BUN/CREATININE RATIO 8.9 (6.6-38.0); CALCIUM 8.3 MG/DL (8.5-10.1); CHLORIDE 103 MMOL/L (99-107); CREATININE 3.59 MG/DL (0.40-0.90); GLUCOSE 111 MG/DL (70-104); POTASSIUM 3.3 MMOL/L (3.5-5.1); SODIUM 137 MMOL/L (135-145); TOTAL CARBON DIOXIDE 22.3 MMOL/L (24-32); eGFR 13 ML/MIN
[2019-10-17 06:00] VITALS: BP 98/61
[2019-10-17 06:01] LABS: BASOPHILS % (AUTO) 1.3 % (0-1); EOSINOPHILS # (AUTO) 0.1 X10'3 (0-0.9); HEMOGLOBIN 11.2 g/dl (12.0-16.0); LYMPHOCYTES # (AUTO) 0.5 X10'3 (1.1-4.8); MEAN CORPUSCULAR HEMOGLOBIN 30.8 PG (27.0-31.0); MEAN CORPUSCULAR VOLUME 90.7 FL (78-98); MEAN PLATELET VOLUME 8.3 FL (7.4-10.4); MONOCYTES # (AUTO) 0.5 X10'3 (0-0.9); MONOCYTES % (AUTO) 15.1 % (2-12); NEUTROPHILS # (AUTO) 2.4 X10'3 (1.8-7.7); NEUTROPHILS % (AUTO) 66.6 % (42-75); PLATELET COUNT 166 X10'3 (140-440); RED BLOOD COUNT 3.64 X10'6 (4.20-5.60); RED CELL DISTRIBUTION WIDTH 14.4 % (11.5-14.5); WHITE BLOOD COUNT 3.6 X10'3 (4.5-11.0)
[2019-10-17] MEDS: normal saline 1000ml 1,000 ML IV SCH ×3 (06:13→19:39)
--- NOTE | 2019-10-17 06:15 | NUR ---
Patient in room ORTHO 4021. I have received report from AI DORSEY and had the opportunity to ask questions and assume patient care.
[2019-10-17 07:53] LABS: PLATELET ESTIMATE NORMAL; TOTAL CELLS COUNTED 100
[2019-10-17] MEDS: CefTRIAXone/D5W-Rocephin 1gm 50 ML IV SCH (08:28)
[2019-10-17] MEDS: heparin, porcine 5000 units/ml vial SQ SCH ×2 (08:28→19:39)
[2019-10-17 09:09] LABS: CREATINE KINASE 40 U/L (26-192)
[2019-10-17 10:00] VITALS: BP 101/65
[2019-10-17 10:05] VITALS: BP_SYST 105; BP_SYST 107; BP_SYST 118; BP_DIAS 56; BP_DIAS 58; BP_DIAS 60
[2019-10-17] MEDS ORDERED: potassium CL 10mEq/100ml bag 100 ML IV PRN (12:50)
[2019-10-17] MEDS: K and/or MAG REPLACEMENT MC SCH ×2 (12:50→20:00)
[2019-10-17] MEDS ORDERED: potassium Cl 20 mEq SR tablet PO PRN (12:50)
[2019-10-17 13:14] LABS: MAGNESIUM 1.6 MG/DL (1.5-2.4)
[2019-10-17] MEDS: potassium Cl 20 mEq SR tablet PO PRN ×3 (13:23→21:21)
[2019-10-17 18:00] VITALS: BP 132/77
--- NOTE | 2019-10-17 18:16 | NUR ---
Problems reprioritized. Patient report given, questions answered & plan of care reviewed with AI NOE.
[2019-10-17 22:00] VITALS: BP 119/61
[2019-10-18 04:00] VITALS: BP_SYST 135; BP_SYST 147; BP_DIAS 84; BP_DIAS 93
[2019-10-18] MEDS: normal saline 1000ml 1,000 ML IV SCH (05:12)
[2019-10-18 05:45] LABS: BASOPHILS % (AUTO) 1.3 % (0-1); EOSINOPHILS # (AUTO) 0.2 X10'3 (0-0.9); HEMATOCRIT 32.5 % (35.0-45.0); LYMPHOCYTES # (AUTO) 0.7 X10'3 (1.1-4.8); LYMPHOCYTES % (AUTO) 19.9 % (21-51); MEAN CORPUSCULAR HGB CONC 33.8 g/dL (33.0-36.5); MEAN CORPUSCULAR VOLUME 91.8 FL (78-98); MEAN PLATELET VOLUME 8.3 FL (7.4-10.4); MONOCYTES # (AUTO) 0.6 X10'3 (0-0.9); MONOCYTES % (AUTO) 15.9 % (2-12); NEUTROPHILS # (AUTO) 1.9 X10'3 (1.8-7.7); NEUTROPHILS % (AUTO) 55.9 % (42-75); PLATELET COUNT 178 X10'3 (140-440); RED BLOOD COUNT 3.54 X10'6 (4.20-5.60); RED CELL DISTRIBUTION WIDTH 14.5 % (11.5-14.5); WHITE BLOOD COUNT 3.5 X10'3 (4.5-11.0)
[2019-10-18 05:52] LABS: ALBUMIN 2.7 G/DL (3.4-5.0); ANION GAP 8 (8-16); BLOOD UREA NITROGEN 22 MG/DL (7-18); BUN/CREATININE RATIO 11.6 (6.6-38.0); CALCIUM 8.2 MG/DL (8.5-10.1); CHLORIDE 108 MMOL/L (99-107); CREATININE 1.89 MG/DL (0.40-0.90); GLUCOSE 106 MG/DL (70-104); MAGNESIUM 1.5 MG/DL (1.5-2.4); POTASSIUM 4.3 MMOL/L (3.5-5.1); SODIUM 138 MMOL/L (135-145); TOTAL CARBON DIOXIDE 21.8 MMOL/L (24-32); eGFR 27 ML/MIN
[2019-10-18 06:00] VITALS: BP 154/82
[2019-10-18 06:57] LABS: PLATELET ESTIMATE NORMAL; TOTAL CELLS COUNTED 100
[2019-10-18] MEDS: heparin, porcine 5000 units/ml vial SQ SCH (07:53)
[2019-10-18] MEDS ORDERED: famotidine 20mg tablet PO SCH (08:00)
[2019-10-18] MEDS: K and/or MAG REPLACEMENT MC SCH (08:00)
[2019-10-18] MEDS: CefTRIAXone/D5W-Rocephin 1gm 50 ML IV SCH (08:07)
[2019-10-18 10:00] VITALS: BP 139/72
--- NOTE | 2019-10-18 15:00 | NUR ---
Patient discharge instructions given, went over medications to continue, IV removed and catheter without any complication. Walked patient down to [facility] where she met her friend who was picking her up.
--- NOTE | 2019-10-18 15:37 | NUR ---
ORIENTATING AI ADAMS REVIEWED AND AGREE WITH CHARTING
== END 2019-10-18 14:45 | disposition home or self-care (01) | DRG 684 ==
LOC: ER 20:28 → ED HOLD 20:29 → ORTHO 4S 21:11
PROVIDERS: ADMIT Internal Medicine; ATTEND Family Medicine
DX: N17.9 Acute kidney failure, unspecified (principal); E03.9 Hypothyroidism, unspecified; N18.9 Chronic kidney disease, unspecified; E87.6 Hypokalemia; I11.0 Hypertensive heart disease with heart failure; Z82.3 Family history of stroke
CPT/HCPCS: 36415; 76700; 76775; 80048; 80053; 81001; 82550; 83690; 83735; 83880; 85025; 87081; 99285; G0378; J0696; J1644; J7030

== ENCOUNTER 2019-11-02 01:31 | Emergency (ER) | payer OTHER ==
[~2019-11-02] VITALS: Ht 157.5 cm; Wt 68.2 kg
[~2019-11-02 01:31] MED LIST changes: -ACAM333T8 PO; -CEPH500C5 PO; -HYDR-3965 PO; -MIRT15TA8 PO; -NALT50TA PO; -PROP20TA6 PO
[2019-11-02] MEDS ORDERED: mag hydrox/Alum hydrox/simeth 30ml oral suspension PO ONE (02:00)
[2019-11-02] MEDS ORDERED: ondansetron/PF 4mg/2ml inj IV ONE ×2 (02:00→02:55)
[2019-11-02] MEDS ORDERED: normal saline 1000ML IV soln IVB ONE (02:00)
[2019-11-02] MEDS ORDERED: famotidine 20mg tablet PO ONE (02:00)
[2019-11-02] MEDS ORDERED: LIDOcaine Viscous 15ml cup MM ONE (02:00)
[2019-11-02 02:13] LABS: CLARITY,URINE CLEAR (Clear); COLOR,URINE YELLOW (Yellow); GLUCOSE, URINE NEGATIVE (Neg); KETONES,URINE NEGATIVE (Neg); LEUKOCYTE ESTERASE ,URINE NEGATIVE (Neg); NITRITES, URINE NEGATIVE (Neg); OCCULT BLOOD,URINE TRACE-INTACT (Neg); PROTEIN,URINE >=300 mg/dl (Neg); UROBILINOGEN,URINE 0.2 E.U/dL (0.2-1.0)
[2019-11-02 02:14] LABS: URINE HCG NEGATIVE (NEG)
[2019-11-02 02:16] LABS: BASOPHILS # (AUTO) 0.1 X10'3 (0-0.2); BASOPHILS % (AUTO) 1.1 % (0-1); EOSINOPHILS # (AUTO) 0.1 X10'3 (0-0.9); EOSINOPHILS % (AUTO) 1.5 % (0-6); HEMATOCRIT 40.9 % (35.0-45.0); HEMOGLOBIN 13.8 g/dl (12.0-16.0); LYMPHOCYTES % (AUTO) 42.1 % (21-51); MEAN CORPUSCULAR HEMOGLOBIN 30.2 PG (27.0-31.0); MEAN CORPUSCULAR HGB CONC 33.7 g/dL (33.0-36.5); MEAN CORPUSCULAR VOLUME 89.7 FL (78-98); MEAN PLATELET VOLUME 7.2 FL (7.4-10.4); MONOCYTES # (AUTO) 0.2 X10'3 (0-0.9); MONOCYTES % (AUTO) 3.8 % (2-12); NEUTROPHILS # (AUTO) 2.4 X10'3 (1.8-7.7); NEUTROPHILS % (AUTO) 51.5 % (42-75); PLATELET COUNT 243 X10'3 (140-440); RED BLOOD COUNT 4.56 X10'6 (4.20-5.60); RED CELL DISTRIBUTION WIDTH 14.9 % (11.5-14.5); WHITE BLOOD COUNT 4.7 X10'3 (4.5-11.0)
[2019-11-02 02:18] LABS: UA COLLECTION TYPE CLN CATCH MIDSTREAM
[2019-11-02 02:22] LABS: BACTERIA,URINE 1+ /HPF (Neg); RBC,URINE NONE SEEN /HPF (0-2); WBC,URINE 0-4 /HPF (0-4)
[2019-11-02 02:23] LABS: FINE GRANULAR CAST 0-3 /LPF (NEGATIVE); SQUAMOUS EPITHELIAL CELL,UR MODERATE /LPF (FEW); YEAST FEW /HPF (NEGATIVE)
[2019-11-02 02:27] LABS: URINE AMPHETAMINE SCREEN NEGATIVE (Neg); URINE BARBITUATE SCREEN NEGATIVE (Neg); URINE BENZODIAZEPINES SCREEN POSITIVE (Neg); URINE CANNABINOID SCREEN NEGATIVE (Neg); URINE COCAINE SCREEN NEGATIVE (Neg); URINE METHADONE SCREEN NEGATIVE (Neg); URINE OPIATE SCREEN NEGATIVE (Neg); URINE PHENCYCLIDINE SCREEN NEGATIVE (Neg)
[2019-11-02 02:29] LABS: ALANINE AMINOTRANSFERASE 34 U/L (12-78); ALBUMIN 4.4 G/DL (3.4-5.0); ALBUMIN/GLOBULIN RATIO 1.2 (1.1-1.5); ALKALINE PHOSPHATASE 77 IU/L (46-116); ANION GAP 16 (8-16); ASPARTATE AMINO TRANSFERASE 46 U/L (10-37); BILIRUBIN,TOTAL 0.6 MG/DL (0.1-1.0); BLOOD UREA NITROGEN 24 MG/DL (7-18); BUN/CREATININE RATIO 18.3 (6.6-38.0); CALCIUM 9.2 MG/DL (8.5-10.1); CHLORIDE 106 MMOL/L (99-107); CREATININE 1.31 MG/DL (0.40-0.90); ETHANOL 0.159 GM/DL (0.0-0.010); GLUCOSE 115 MG/DL (70-104); LIPASE 646 U/L (73-393); POTASSIUM 3.6 MMOL/L (3.5-5.1); SODIUM 142 MMOL/L (135-145); TOTAL CARBON DIOXIDE 20.5 MMOL/L (24-32); TOTAL PROTEIN 8.2 G/DL (6.4-8.2); eGFR 41 ML/MIN
[2019-11-02] MEDS ORDERED: ONDA8TAB13 PO (02:56)
[2019-11-02 03:11] VITALS: BP 154/98
== END 2019-11-02 03:12 | disposition home or self-care (01) ==
LOC: ER 01:31
DX: K86.0 Alcohol-induced chronic pancreatitis (principal); F10.129 Alcohol abuse with intoxication, unspecified; R11.2 Nausea with vomiting, unspecified; I12.9 Hypertensive chronic kidney disease with stage 1 through stage 4 chronic kidney disease, or unspecified chronic kidney disease; N18.9 Chronic kidney disease, unspecified; G89.29 Other chronic pain; F41.9 Anxiety disorder, unspecified; F32.9 Major depressive disorder, single episode, unspecified; F12.90 Cannabis use, unspecified, uncomplicated; Z90.49 Acquired absence of other specified parts of digestive tract; Z90.710 Acquired absence of both cervix and uterus; Z98.51 Tubal ligation status; Z90.722 Acquired absence of ovaries, bilateral; Z88.2 Allergy status to sulfonamides; Z79.899 Other long term (current) drug therapy; Y90.0 Blood alcohol level of less than 20 mg/100 ml
CPT/HCPCS: 36415; 80053; 80305; 80320; 81001; 81025; 83690; 85025; 87088; 96361; 96374; 96376; 99284; J2405; J7030

== ENCOUNTER 2019-12-16 12:30 | Emergency (ER) | payer OTHER ==
[~2019-12-16] VITALS: Ht 157.5 cm; Wt 69.0 kg
[2019-12-16 13:24] LABS: BASOPHILS % (AUTO) 0.6 % (0-1); EOSINOPHILS % (AUTO) 0.5 % (0-6); HEMATOCRIT 40.8 % (35.0-45.0); HEMOGLOBIN 13.8 g/dl (12.0-16.0); LYMPHOCYTES # (AUTO) 1.4 X10'3 (1.1-4.8); LYMPHOCYTES % (AUTO) 18.9 % (21-51); MEAN CORPUSCULAR HEMOGLOBIN 30.5 PG (27.0-31.0); MEAN CORPUSCULAR HGB CONC 33.8 g/dL (33.0-36.5); MEAN CORPUSCULAR VOLUME 90.4 FL (78-98); MEAN PLATELET VOLUME 7.4 FL (7.4-10.4); MONOCYTES # (AUTO) 0.7 X10'3 (0-0.9); MONOCYTES % (AUTO) 9.1 % (2-12); NEUTROPHILS # (AUTO) 5.2 X10'3 (1.8-7.7); NEUTROPHILS % (AUTO) 70.9 % (42-75); PLATELET COUNT 397 X10'3 (140-440); RED BLOOD COUNT 4.52 X10'6 (4.20-5.60); RED CELL DISTRIBUTION WIDTH 16.4 % (11.5-14.5); WHITE BLOOD COUNT 7.3 X10'3 (4.5-11.0)
[2019-12-16 13:33] LABS: ALANINE AMINOTRANSFERASE 25 U/L (12-78); ALBUMIN 4.7 G/DL (3.4-5.0); ALBUMIN/GLOBULIN RATIO 1.2 (1.1-1.5); ALKALINE PHOSPHATASE 54 IU/L (46-116); ANION GAP 13 (8-16); ASPARTATE AMINO TRANSFERASE 29 U/L (10-37); BILIRUBIN,TOTAL 0.7 MG/DL (0.1-1.0); BLOOD UREA NITROGEN 17 MG/DL (7-18); BUN/CREATININE RATIO 8.5 (6.6-38.0); CALCIUM 10.2 MG/DL (8.5-10.1); CHLORIDE 97 MMOL/L (99-107); CREATININE 1.99 MG/DL (0.40-0.90); GLUCOSE 111 MG/DL (70-104); LIPASE 223 U/L (73-393); POTASSIUM 3.6 MMOL/L (3.5-5.1); SODIUM 138 MMOL/L (135-145); TOTAL CARBON DIOXIDE 27.6 MMOL/L (24-32); TOTAL PROTEIN 8.7 G/DL (6.4-8.2); eGFR 25 ML/MIN
[2019-12-16] MEDS ORDERED: ondansetron/PF 4mg/2ml inj IV ONE (14:35)
[2019-12-16] MEDS ORDERED: normal saline 1000ML IV soln IVB ONE (14:35)
[2019-12-16] MEDS ORDERED: proCHLORperazine 10 MG/2 ml inj IV ONE (14:35)
[2019-12-16] MEDS ORDERED: dicyclomine 10mg/ml 2ml ampule IM ONE (14:35)
[2019-12-16 14:54] LABS: CLARITY,URINE SLIGHTLY CLOUDY (Clear); GLUCOSE, URINE NEGATIVE (Neg); KETONES,URINE NEGATIVE (Neg); LEUKOCYTE ESTERASE ,URINE NEGATIVE (Neg); NITRITES, URINE NEGATIVE (Neg); OCCULT BLOOD,URINE NEGATIVE (Neg); PH,URINE 5.5 (4.8-8.0); PROTEIN,URINE >=300 mg/dl (Neg)
[2019-12-16 14:55] LABS: TROPONIN I < 0.04 NG/ML (0.0-0.05)
[2019-12-16 14:56] LABS: COLOR,URINE DARK YELLOW (Yellow); UA COLLECTION TYPE VOIDED; URINE HCG NEGATIVE (NEG)
[2019-12-16 15:02] LABS: BACTERIA,URINE 1+ /HPF (Neg); RBC,URINE 0-2 /HPF (0-2)
[2019-12-16 15:03] LABS: COARSE GRANULAR CAST 0-3 /LPF (NEGATIVE); MUCUS STRANDS MODERATE /LPF (Neg); SQUAMOUS EPITHELIAL CELL,UR MANY /LPF (FEW); TRANSITIONAL EPI CELLS,URINE FEW /HPF
[2019-12-16] MEDS ORDERED: PROC-8 PO (16:02)
[2019-12-16] MEDS ORDERED: ONDA8TAB6 PO (16:02)
[2019-12-16] MEDS ORDERED: PANT20TA2 PO (16:02)
[2019-12-16 16:36] VITALS: BP 127/82
== END 2019-12-16 16:35 | disposition home or self-care (01) ==
LOC: ER 12:30
DX: R10.84 Generalized abdominal pain (principal); R11.2 Nausea with vomiting, unspecified; I12.9 Hypertensive chronic kidney disease with stage 1 through stage 4 chronic kidney disease, or unspecified chronic kidney disease; N18.9 Chronic kidney disease, unspecified; G89.29 Other chronic pain; F41.9 Anxiety disorder, unspecified; F32.9 Major depressive disorder, single episode, unspecified; F10.10 Alcohol abuse, uncomplicated; F12.90 Cannabis use, unspecified, uncomplicated; Z90.49 Acquired absence of other specified parts of digestive tract; Z90.710 Acquired absence of both cervix and uterus; Z98.51 Tubal ligation status; Z86.19 Personal history of other infectious and parasitic diseases; Z88.2 Allergy status to sulfonamides; Z79.899 Other long term (current) drug therapy
CPT/HCPCS: 36415; 71045; 80053; 81001; 81025; 83690; 84484; 85025; 93005; 96361; 96372; 96374; 96375; 99285; J0500; J0780; J2405; J7030

== ENCOUNTER 2020-01-11 11:54 | Inpatient (IN) | payer OTHER ==
[~2020-01-11] VITALS: Ht 157.5 cm; Wt 68.2 kg
[~2020-01-11 11:54] MED LIST changes: +ONDA8TAB6 PO; +PANT20TA2 PO; +PROC-8 PO
[2020-01-11] MEDS ORDERED: LORazepam 2 mg/ml vial IV ONE ×2 (12:15→14:25)
[2020-01-11] MEDS ORDERED: normal saline 1000ML IV soln IVB ONE ×2 (12:15→13:00)
[2020-01-11 12:43] LABS: BASOPHILS % (AUTO) 0.1 % (0-1); EOSINOPHILS % (AUTO) 0 % (0-6); HEMATOCRIT 39.3 % (35.0-45.0); HEMOGLOBIN 13.4 g/dl (12.0-16.0); LYMPHOCYTES % (AUTO) 10.9 % (21-51); MEAN CORPUSCULAR HEMOGLOBIN 29.7 PG (27.0-31.0); MEAN CORPUSCULAR HGB CONC 34.1 g/dL (33.0-36.5); MEAN CORPUSCULAR VOLUME 87.1 FL (78-98); MONOCYTES # (AUTO) 0.2 X10'3 (0-0.9); MONOCYTES % (AUTO) 2.3 % (2-12); NEUTROPHILS # (AUTO) 7.6 X10'3 (1.8-7.7); NEUTROPHILS % (AUTO) 86.7 % (42-75); PLATELET COUNT 247 X10'3 (140-440); RED BLOOD COUNT 4.51 X10'6 (4.20-5.60); RED CELL DISTRIBUTION WIDTH 14.6 % (11.5-14.5); WHITE BLOOD COUNT 8.8 X10'3 (4.5-11.0)
[2020-01-11] MEDS ORDERED: morphine 10mg/ml inj. IV ONE ×2 (12:45→14:25)
[2020-01-11 12:46] LABS: ALANINE AMINOTRANSFERASE 35 U/L (12-78); ALBUMIN 4.5 G/DL (3.4-5.0); ALBUMIN/GLOBULIN RATIO 1.1 (1.1-1.5); ALKALINE PHOSPHATASE 73 IU/L (46-116); ANION GAP 19 (8-16); ASPARTATE AMINO TRANSFERASE 45 U/L (10-37); BILIRUBIN,TOTAL 1.2 MG/DL (0.1-1.0); BLOOD UREA NITROGEN 38 MG/DL (7-18); BUN/CREATININE RATIO 14.2 (6.6-38.0); CALCIUM 9.4 MG/DL (8.5-10.1); CHLORIDE 93 MMOL/L (99-107); CREATININE 2.68 MG/DL (0.40-0.90); GLUCOSE 132 MG/DL (70-104); LIPASE 127 U/L (73-393); SODIUM 132 MMOL/L (135-145); TOTAL CARBON DIOXIDE 20.4 MMOL/L (24-32); TOTAL PROTEIN 8.5 G/DL (6.4-8.2); eGFR 18 ML/MIN
[2020-01-11] MEDS ORDERED: ondansetron/PF 4mg/2ml inj IV ONE (13:05)
--- NOTE | 2020-01-11 13:20 | NUR ---
NOTIFIED PLANIMETER OPERATOR VIDAL AND PRIMARY NURSE SKIP REGARDING PT HIGH BP 213/115.
[2020-01-11] MEDS ORDERED: cloNIDine 0.1 mg tablet PO ONE (13:45)
[2020-01-11] MEDS ORDERED: potassium Cl 10 mEq/100mL bag IV ONE (13:45)
[2020-01-11] MEDS ORDERED: magnesium 2GM in 50ml NS 50 ML IV ONE (13:45)
[2020-01-11 13:54] LABS: ETHANOL < 0.010 GM/DL (0.0-0.010)
[2020-01-11 14:07] LABS: MAGNESIUM 1.1 MG/DL (1.5-2.4)
[2020-01-11 14:10] LABS: CLARITY,URINE CLEAR (Clear); COLOR,URINE STRAW (Yellow); GLUCOSE, URINE NEGATIVE (Neg); KETONES,URINE NEGATIVE (Neg); LEUKOCYTE ESTERASE ,URINE NEGATIVE (Neg); NITRITES, URINE NEGATIVE (Neg); OCCULT BLOOD,URINE TRACE-INTACT (Neg); PROTEIN,URINE 100 mg/dl (Neg); UROBILINOGEN,URINE 0.2 E.U/dL (0.2-1.0)
[2020-01-11 14:15] LABS: UA COLLECTION TYPE CLN CATCH MIDSTREAM
[2020-01-11 14:19] LABS: HYALINE CASTS >30 /LPF (NEGATIVE); URINE AMPHETAMINE SCREEN NEGATIVE (Neg); URINE BARBITUATE SCREEN NEGATIVE (Neg); URINE BENZODIAZEPINES SCREEN NEGATIVE (Neg); URINE CANNABINOID SCREEN POSITIVE (Neg); URINE COCAINE SCREEN NEGATIVE (Neg); URINE METHADONE SCREEN NEGATIVE (Neg); URINE OPIATE SCREEN POSITIVE (Neg); URINE PHENCYCLIDINE SCREEN NEGATIVE (Neg)
[2020-01-11 14:20] LABS: BACTERIA,URINE 1+ /HPF (Neg); MUCUS STRANDS FEW /LPF (Neg); RBC,URINE 0-2 /HPF (0-2); SQUAMOUS EPITHELIAL CELL,UR FEW /LPF (FEW); WBC,URINE 0-4 /HPF (0-4)
[2020-01-11] MEDS ORDERED: proCHLORperazine 10 MG/2 ml inj IV ONE (14:25)
[2020-01-11] MEDS ORDERED: hydrALAZINE 20mg/ml inj. IV ONE (16:10)
[2020-01-11] MEDS ORDERED: magnesium 2GM in 50ml NS 50 ML IV PRN (16:40)
[2020-01-11] MEDS ORDERED: potassium Cl 20 mEq SR tablet PO PRN (16:40)
[2020-01-11] MEDS ORDERED: magnesium 4gm in 100ml NS 100 ML IV PRN (16:40)
[2020-01-11] MEDS ORDERED: acetaminophen 325mg tablet PO PRN ×2 (16:40)
[2020-01-11] MEDS ORDERED: ondansetron/PF 4mg/2ml inj IV PRN (16:40)
[2020-01-11] MEDS ORDERED: potassium CL 10mEq/100ml bag 100 ML IV PRN ×2 (16:40)
[2020-01-11] MEDS ORDERED: thiamine inj. 100 MG in normal saline 100ml IV soln 100 ML IV ONE (17:00)
--- NOTE | 2020-01-11 18:37 | NUR ---
Patient in room ED 9 going to room 3010R. I have received report from Richie CLOUD and had the opportunity to ask questions and assume patient care.
--- NOTE | 2020-01-11 18:55 | NUR ---
Patient arrived on unit alert and oriented. Two RN skin check preformed. Vital signs obtained- 97.8, 87HR, 16 RR, 97%, 90/50 telemetry unit 33 applied. MRSA swab obtained. Seizures pads in place and patient resting comfortably. Will continue to monitor and provide care.
[2020-01-11 19:17] VITALS: BP 90/50
[2020-01-11] MEDS: folic acid inj. 2 MG, thiamine inj. 100 MG, MVI, adult No.4 with vit. K 10 ML in dextro... IV SCH ×4 (19:18)
--- NOTE | 2020-01-11 19:23 | NUR ---
LATE ADMINISTRATION OF 500 ML BAG OF IV FOLIC ACID/THIAMINE/MVI. MEDICATION PRESCRIBED TO BE GIVEN IN ER AT 1700 AND WAS NOT DONE. IV INFUSING NOW PER PROVIDER ORDER.
[2020-01-11] MEDS: hydrALAZINE 20mg/ml inj. IV SCH (20:00)
--- NOTE | 2020-01-11 20:03 | NUR ---
Paged Dr Shields PAGER ID: [phone] MESSAGE: [id number] Mary Morel BP 81/43 double checked with manual. Will give 250ml bolus. Let me know if you want any new orders. Thank you! Sugar CLOUD [id number]
--- NOTE | 2020-01-11 20:06 | NUR ---
New orders to give 500 bolus instead of [address] Shields.
[2020-01-11] MEDS: magnesium Cl slow-release 64mg tablet PO PRN (20:20)
[2020-01-11] MEDS: K and/or MAG REPLACEMENT MC SCH (20:22)
--- NOTE | 2020-01-11 21:04 | NUR ---
PAGER ID: [phone] MESSAGE: [id number] Mary Morel 500 Bolus complete. Blood pressure 81/41 Sugar Sumner ext [phone]
[2020-01-11] MEDS ORDERED: midodrine tablet 2.5 MG TABLET PO ONE (21:05)
--- NOTE | 2020-01-11 21:05 | NUR ---
New orders from Dr Shields to give 2.5mg of mitidrine. Addendum: 01/11/20 at 2111 by Sugar Omer RN *Midodrine
--- NOTE | 2020-01-11 21:38 | NUR ---
Rechecked pt blood pressure just prior to giving midodrine and it was 101/46. Discussed with charge and decided to hold midodrine due to patient trends of going high in ER.
[2020-01-11 22:00] VITALS: BP 98/52
[2020-01-11] MEDS: LORazepam 1 MG tablet PO PRN (23:16)
[2020-01-12] VITALS (12 sets, daily range): BP systolic 94–213; BP diastolic 51–107
[2020-01-12 01:47] LABS: AMYLASE 36 U/L (25-115); ANION GAP 11 (8-16); BLOOD UREA NITROGEN 36 MG/DL (7-18); BUN/CREATININE RATIO 16.1 (6.6-38.0); CALCIUM 7.6 MG/DL (8.5-10.1); CHLORIDE 101 MMOL/L (99-107); CHOL/HDL RATIO 2.4 (0.00-4.99); CHOLESTEROL 161 MG/DL (0-200); CREATININE 2.23 MG/DL (0.40-0.90); GLUCOSE 106 MG/DL (70-104); HDL CHOLESTEROL 66 MG/DL (35-60); LDL CHOLESTEROL 74 MG/DL (50-100); LIPASE 198 U/L (73-393); MAGNESIUM 1.6 MG/DL (1.5-2.4); PHOSPHORUS 3.3 MG/DL (2.3-4.5); POTASSIUM 3.3 MMOL/L (3.5-5.1); SODIUM 132 MMOL/L (135-145); TOTAL CARBON DIOXIDE 19.7 MMOL/L (24-32); TRIGLYCERIDES 90 MG/DL (20-135); eGFR 22 ML/MIN
[2020-01-12 01:55] LABS: BASOPHILS % (AUTO) 0.8 % (0-1); EOSINOPHILS % (AUTO) 0.8 % (0-6); HEMOGLOBIN 11.3 g/dl (12.0-16.0); LYMPHOCYTES # (AUTO) 1.5 X10'3 (1.1-4.8); MEAN CORPUSCULAR HEMOGLOBIN 30.3 PG (27.0-31.0); MEAN CORPUSCULAR HGB CONC 34.2 g/dL (33.0-36.5); MEAN CORPUSCULAR VOLUME 88.7 FL (78-98); MEAN PLATELET VOLUME 8.1 FL (7.4-10.4); MONOCYTES # (AUTO) 0.3 X10'3 (0-0.9); MONOCYTES % (AUTO) 6.4 % (2-12); NEUTROPHILS # (AUTO) 3.3 X10'3 (1.8-7.7); PLATELET COUNT 157 X10'3 (140-440); RED BLOOD COUNT 3.72 X10'6 (4.20-5.60); RED CELL DISTRIBUTION WIDTH 14.8 % (11.5-14.5); WHITE BLOOD COUNT 5.3 X10'3 (4.5-11.0)
[2020-01-12] MEDS: hydrALAZINE 20mg/ml inj. IV SCH ×4 (02:00→20:25)
--- NOTE | 2020-01-12 06:15 | NUR ---
Patient in room PCU 3016. I have received report from AI Wooten and had the opportunity to ask questions and assume patient care. Patient asleep on report and in no apparent distress.
--- NOTE | 2020-01-12 06:18 | NUR ---
Problems reprioritized. Patient report given, questions answered & plan of care reviewed with Trayc CLOUD and John CLOUD.
--- NOTE | 2020-01-12 06:26 | NUR ---
Patient in room PCU 3016. I have received report from AI Wooten and had the opportunity to ask questions and assume patient care. Pt sleeping comfortably.
[2020-01-12] MEDS: LORazepam 1 MG tablet PO PRN ×3 (08:15→22:12)
[2020-01-12] MEDS: folic acid inj. 2 MG, thiamine inj. 100 MG, MVI, adult No.4 with vit. K 10 ML in dextro... IV SCH ×4 (08:24)
[2020-01-12] MEDS: potassium Cl 20 mEq SR tablet PO PRN ×3 (08:28→20:24)
[2020-01-12] MEDS: K and/or MAG REPLACEMENT MC SCH ×2 (08:35→20:32)
--- NOTE | 2020-01-12 09:54 | NUR ---
Paged Dr Crespo regarding pt's pain PAGER ID: [phone] MESSAGE: Re Halima Morel [id number] Pt is in a lot of abdominal pain, only has Tylenol ordered which isn't working. Please advise if I can order something for her. Thank you Tracy Ahuja [phone]
[2020-01-12] MEDS ORDERED: HYDROmorphone 1 mg/ml syringe IV ONE (10:15)
--- NOTE | 2020-01-12 10:18 | NUR ---
Per Dr Crespo's new orders, start pt on Protonix 40mg PO BID first does now, collect stool sample for occult stool, give Dilaudid 1mg IV once.
[2020-01-12] MEDS: pantoprazole 40mg Tablet.DR PO SCH ×2 (10:26→20:24)
[2020-01-12] MEDS ORDERED: traMADol 50MG tablet PO ONE (11:55)
--- NOTE | 2020-01-12 11:59 | NUR ---
Pt complains of continuous abdominal pain, Dr Crespo's new orders: Ultam 50mg PO once, pt's blood pressure 187/89, Dr ordered Hydralazine 5mg/0.25ml once. And ordered Carafate 1Gm PO QID for gastritis.
[2020-01-12] MEDS ORDERED: hydrALAZINE 20mg/ml inj. IV ONE (12:00)
--- NOTE | 2020-01-12 14:16 | NUR ---
Paged PICC Re Maria Teresa, Mary [id number] Are you able to place a PIV? Thank you :)
--- NOTE | 2020-01-12 15:24 | NUR ---
Paged Dr. Crespo regarding pt's pain Re: Dread Morelse [id number]. Pt complains of abdominal pain, asking for pain medication. Please advise, thank you. John CLOUD [phone]
[2020-01-12] MEDS ORDERED: HYDROmorphone inj. 0.5 MG/0.5 ML DISP.SYRIN IV ONE (15:30)
[2020-01-12] MEDS: sucralfate 1gm/10ml UD suspension PO SCH ×2 (17:34→20:24)
--- NOTE | 2020-01-12 17:44 | NUR ---
Paged Dr Crespo regarding pt BP PAGER ID: [phone] MESSAGE: Gabriela RaoMary cordero [id number] Pt BP 213, gave Hydralazine 5mg 10 minutes ago. Please Advise. Thanks Tracy Ahuja
--- NOTE | 2020-01-12 18:09 | NUR ---
Paged Dr Crespo regarding BP still being elevated PAGER ID: [phone] MESSAGE: Re: Maria Teresa Mary [id number] After 45 mins of hydralazine, pt's blood pressure is 185/97. Please advise. Thank you Tracy [phone]
--- NOTE | 2020-01-12 18:11 | NUR ---
Problems reprioritized. Patient report given, questions answered & plan of care reviewed with Trang CLOUD. Patient resting in bed, contacted Zak about elevated blood pressures.
[2020-01-12] MEDS ORDERED: cloNIDine 0.1 mg tablet PO PRN (18:15)
--- NOTE | 2020-01-12 18:16 | NUR ---
Per Dr Crespo's orders, give pt Clonidine 0.2mg PO Q6H PRN for systolic BP >160 mmHg.
--- NOTE | 2020-01-12 18:33 | NUR ---
Patient in room PCU 3016. I have received report from Tracy CLOUD and had the opportunity to ask questions and assume patient care.
--- NOTE | 2020-01-12 18:38 | NUR ---
Orientee documentation: I have reviewed and agree with all interventions, assessments performed and documented by AI Lopez.
--- NOTE | 2020-01-12 18:38 | NUR ---
[place] Medication Administration: For this medication-pass time frame, all medication were reviewed, dispensed, administered and documented per hospital policy by AI Lopez.
--- NOTE | 2020-01-12 18:38 | NUR ---
Problems reprioritized. Patient report given, questions answered & plan of care reviewed with AI Costello. Pt in no distress, informed RN of new blood pressure medication Clonidine for a systolic >160. Pt's blood pressure a time of shift change 158/97.
--- NOTE | 2020-01-12 19:27 | NUR ---
: [phone] MESSAGE: [id number] Cristofer Morel. Patient only has Tylenol ordered for pain, can she have something else. pt's pain 01/29. Trang [phone]
[2020-01-12] MEDS: oxyCODONE/APAP 5-325mg tablet PO PRN (20:25)
[2020-01-13 02:00] VITALS: BP 86/44
[2020-01-13] MEDS: hydrALAZINE 20mg/ml inj. IV SCH ×4 (02:00→20:00)
[2020-01-13 05:36] LABS: BASOPHILS % (AUTO) 0.3 % (0-1); EOSINOPHILS # (AUTO) 0.1 X10'3 (0-0.9); EOSINOPHILS % (AUTO) 1.2 % (0-6); HEMATOCRIT 31.8 % (35.0-45.0); HEMOGLOBIN 11.2 g/dl (12.0-16.0); LYMPHOCYTES # (AUTO) 1.4 X10'3 (1.1-4.8); LYMPHOCYTES % (AUTO) 31.8 % (21-51); MEAN CORPUSCULAR HEMOGLOBIN 30.8 PG (27.0-31.0); MEAN CORPUSCULAR HGB CONC 35.1 g/dL (33.0-36.5); MEAN CORPUSCULAR VOLUME 87.8 FL (78-98); MEAN PLATELET VOLUME 8.2 FL (7.4-10.4); MONOCYTES # (AUTO) 0.3 X10'3 (0-0.9); MONOCYTES % (AUTO) 7.6 % (2-12); NEUTROPHILS # (AUTO) 2.6 X10'3 (1.8-7.7); NEUTROPHILS % (AUTO) 59.1 % (42-75); PLATELET COUNT 165 X10'3 (140-440); RED BLOOD COUNT 3.63 X10'6 (4.20-5.60); WHITE BLOOD COUNT 4.5 X10'3 (4.5-11.0)
[2020-01-13 05:51] LABS: ALBUMIN 3.2 G/DL (3.4-5.0); AMYLASE 39 U/L (25-115); ANION GAP 11 (8-16); BLOOD UREA NITROGEN 31 MG/DL (7-18); BUN/CREATININE RATIO 15.6 (6.6-38.0); CALCIUM 8.5 MG/DL (8.5-10.1); CHLORIDE 101 MMOL/L (99-107); CREATININE 1.99 MG/DL (0.40-0.90); GLUCOSE 95 MG/DL (70-104); LIPASE 243 U/L (73-393); MAGNESIUM 1.4 MG/DL (1.5-2.4); PHOSPHORUS 3.7 MG/DL (2.3-4.5); POTASSIUM 3.4 MMOL/L (3.5-5.1); SODIUM 133 MMOL/L (135-145); TOTAL CARBON DIOXIDE 20.8 MMOL/L (24-32); eGFR 25 ML/MIN
[2020-01-13 06:00] VITALS: BP_SYST 114; BP_SYST 138; BP_DIAS 52; BP_DIAS 65
--- NOTE | 2020-01-13 06:20 | NUR ---
Problems reprioritized. Patient report given, questions answered & plan of care reviewed with Mayo CLOUD.
--- NOTE | 2020-01-13 06:27 | NUR ---
Patient in room PCU 3016. I have received report from AI Costello and had the opportunity to ask questions and assume patient care.
[2020-01-13] MEDS: LORazepam 1 MG tablet PO PRN ×3 (06:55→20:35)
[2020-01-13] MEDS: oxyCODONE/APAP 5-325mg tablet PO PRN ×3 (06:55→20:34)
[2020-01-13] MEDS: potassium Cl 20 mEq SR tablet PO PRN ×4 (06:55→20:31)
[2020-01-13] MEDS: magnesium Cl slow-release 64mg tablet PO PRN (06:56)
[2020-01-13] MEDS: sucralfate 1gm/10ml UD suspension PO SCH ×4 (06:56→20:35)
[2020-01-13] MEDS: thiamine 100mg tablet PO SCH (07:16)
[2020-01-13] MEDS: folic acid 1mg tablet PO SCH (07:16)
[2020-01-13] MEDS: pantoprazole 40mg Tablet.DR PO SCH ×2 (07:16→20:36)
[2020-01-13] MEDS: multivitamins, therapeutics tablet PO SCH (07:16)
[2020-01-13] MEDS: K and/or MAG REPLACEMENT MC SCH ×2 (08:15→20:00)
[2020-01-13 11:00] VITALS: BP 106/58
[2020-01-13 15:00] VITALS: BP 109/65
[2020-01-13 18:00] VITALS: BP 127/69
--- NOTE | 2020-01-13 18:00 | NUR ---
Patient in room PCU 3016. I have received report from Mayo CLOUD and had the opportunity to ask questions and assume patient care.
--- NOTE | 2020-01-13 18:06 | NUR ---
Problems reprioritized. Patient report given, questions answered & plan of care reviewed with AI Nunn.
[2020-01-13 22:00] VITALS: BP 131/72
[2020-01-14 02:00] VITALS: BP 126/75
[2020-01-14] MEDS: hydrALAZINE 20mg/ml inj. IV SCH ×2 (02:00→08:25)
[2020-01-14 06:00] VITALS: BP 138/85
[2020-01-14 06:31] LABS: BASOPHILS % (AUTO) 0.6 % (0-1); EOSINOPHILS # (AUTO) 0.1 X10'3 (0-0.9); EOSINOPHILS % (AUTO) 2.9 % (0-6); HEMATOCRIT 33.2 % (35.0-45.0); HEMOGLOBIN 11.3 g/dl (12.0-16.0); LYMPHOCYTES # (AUTO) 1.3 X10'3 (1.1-4.8); LYMPHOCYTES % (AUTO) 30.8 % (21-51); MEAN CORPUSCULAR HEMOGLOBIN 30.4 PG (27.0-31.0); MEAN CORPUSCULAR HGB CONC 34.1 g/dL (33.0-36.5); MEAN CORPUSCULAR VOLUME 89.2 FL (78-98); MEAN PLATELET VOLUME 8.5 FL (7.4-10.4); MONOCYTES # (AUTO) 0.3 X10'3 (0-0.9); MONOCYTES % (AUTO) 7.8 % (2-12); NEUTROPHILS # (AUTO) 2.5 X10'3 (1.8-7.7); NEUTROPHILS % (AUTO) 57.9 % (42-75); PLATELET COUNT 150 X10'3 (140-440); RED BLOOD COUNT 3.73 X10'6 (4.20-5.60); RED CELL DISTRIBUTION WIDTH 14.9 % (11.5-14.5); WHITE BLOOD COUNT 4.2 X10'3 (4.5-11.0)
--- NOTE | 2020-01-14 06:33 | NUR ---
Problems reprioritized. Patient report given, questions answered & plan of care reviewed with Brianne CLOUD.
--- NOTE | 2020-01-14 06:44 | NUR ---
Patient in room PCU 3016. I have received report from Arline CLOUD and had the opportunity to ask questions and assume patient care.
[2020-01-14 06:51] LABS: AMYLASE 45 U/L (25-115); ANION GAP 9 (8-16); BLOOD UREA NITROGEN 35 MG/DL (7-18); BUN/CREATININE RATIO 18.9 (6.6-38.0); CALCIUM 8.6 MG/DL (8.5-10.1); CHLORIDE 103 MMOL/L (99-107); CREATININE 1.85 MG/DL (0.40-0.90); GLUCOSE 96 MG/DL (70-104); LIPASE 283 U/L (73-393); MAGNESIUM 1.5 MG/DL (1.5-2.4); PHOSPHORUS 3.1 MG/DL (2.3-4.5); POTASSIUM 4.7 MMOL/L (3.5-5.1); SODIUM 132 MMOL/L (135-145); TOTAL CARBON DIOXIDE 20.5 MMOL/L (24-32); eGFR 28 ML/MIN
[2020-01-14] MEDS ORDERED: levoTHYROXINE 25mcg tablet PO SCH (07:00)
[2020-01-14] MEDS ORDERED: levoTHYROXINE 112mcg tablet PO SCH (07:00)
[2020-01-14] MEDS: K and/or MAG REPLACEMENT MC SCH (08:00)
[2020-01-14] MEDS: sucralfate 1gm/10ml UD suspension PO SCH ×2 (08:19→11:35)
[2020-01-14] MEDS: thiamine 100mg tablet PO SCH (08:21)
[2020-01-14] MEDS: pantoprazole 40mg Tablet.DR PO SCH (08:21)
[2020-01-14] MEDS: folic acid 1mg tablet PO SCH (08:21)
[2020-01-14] MEDS: multivitamins, therapeutics tablet PO SCH (08:21)
[2020-01-14] MEDS: oxyCODONE/APAP 5-325mg tablet PO PRN (08:43)
[2020-01-14 10:00] VITALS: BP 154/79
[2020-01-14] MEDS ORDERED: SUCR1ORA12 PO (10:58)
[2020-01-14] MEDS ORDERED: NOR5T PO (10:58)
[2020-01-14] MEDS ORDERED: PANT40TA4 PO (10:58)
[2020-01-14] MEDS ORDERED: amLODIPine 5mg tablet PO ONE (11:05)
[2020-01-14] MEDS: LORazepam 1 MG tablet PO PRN (11:36)
[2020-01-14 13:00] VITALS: BP 182/101
--- NOTE | 2020-01-14 15:16 | NUR ---
pt refused vitals at 1100 Addendum: 01/14/20 at 1516 by Tonia Junior RN Amended: Links added.
[2020-01-15] MEDS ORDERED: amLODIPine 5mg tablet PO SCH (08:00)
[2020-01-15] MEDS ORDERED: METO-292 PO (09:27)
== END 2020-01-14 14:05 | disposition home or self-care (01) | DRG 392 ==
LOC: ER 11:54 → ED HOLD 16:40 → PCU 3S 18:50
PROVIDERS: ADMIT Internal Medicine; ATTEND Internal Medicine
DX: K29.20 Alcoholic gastritis without bleeding (principal); K86.1 Other chronic pancreatitis; M48.56XA Collapsed vertebra, not elsewhere classified, lumbar region, initial encounter for fracture; N17.9 Acute kidney failure, unspecified; E03.9 Hypothyroidism, unspecified; E87.6 Hypokalemia; F10.10 Alcohol abuse, uncomplicated; Y90.9 Presence of alcohol in blood, level not specified; K74.60 Unspecified cirrhosis of liver; B18.2 Chronic viral hepatitis C; I12.9 Hypertensive chronic kidney disease with stage 1 through stage 4 chronic kidney disease, or unspecified chronic kidney disease; N18.9 Chronic kidney disease, unspecified; F41.9 Anxiety disorder, unspecified; Z90.49 Acquired absence of other specified parts of digestive tract; Z90.710 Acquired absence of both cervix and uterus; Z90.721 Acquired absence of ovaries, unilateral
CPT/HCPCS: 36415; 71045; 74176; 76937; 80048; 80053; 80061; 80305; 80320; 81001; 82150; 83690; 83735; 84100; 84484; 85025; 85610; 87081; 93005; 93306; 96361; 96365; 96368; 96375; 96376; 97110; 97116; 97161; 97530; 99285; G0378; J0360; J0780; J1170; J2060; J2270; J2405; J3411; J3475; J3480; J3490; J7030; J7060

== ENCOUNTER 2020-01-15 03:12 | Emergency (ER) | payer OTHER ==
[~2020-01-15] VITALS: Ht 180.3 cm; Wt 68.2 kg
[~2020-01-15 03:12] MED LIST changes: +NOR5T PO; +PANT40TA4 PO; +SUCR1ORA12 PO
[2020-01-15] MEDS ORDERED: normal saline 1000ML IV soln IVB ONE ×2 (03:15)
[2020-01-15] MEDS ORDERED: diphenhydrAMINE 50 mg/ml inj IV ONE (03:15)
[2020-01-15] MEDS ORDERED: LORazepam 2 mg/ml vial IV ONE (03:15)
[2020-01-15] MEDS ORDERED: metoclopramide 5 mg/ml inj IV ONE (03:15)
--- NOTE | 2020-01-15 03:20 | NUR ---
at bedside assessing the pt. at this time.
[2020-01-15 03:43] LABS: BASOPHILS % (AUTO) 0.4 % (0-1); EOSINOPHILS # (AUTO) 0.1 X10'3 (0-0.9); EOSINOPHILS % (AUTO) 1.3 % (0-6); HEMATOCRIT 37.4 % (35.0-45.0); HEMOGLOBIN 12.9 g/dl (12.0-16.0); LYMPHOCYTES # (AUTO) 1.4 X10'3 (1.1-4.8); LYMPHOCYTES % (AUTO) 15.9 % (21-51); MEAN CORPUSCULAR HEMOGLOBIN 30.1 PG (27.0-31.0); MEAN CORPUSCULAR HGB CONC 34.4 g/dL (33.0-36.5); MEAN CORPUSCULAR VOLUME 87.6 FL (78-98); MONOCYTES # (AUTO) 0.4 X10'3 (0-0.9); MONOCYTES % (AUTO) 5.2 % (2-12); NEUTROPHILS # (AUTO) 6.6 X10'3 (1.8-7.7); NEUTROPHILS % (AUTO) 77.2 % (42-75); PLATELET COUNT 237 X10'3 (140-440); RED BLOOD COUNT 4.27 X10'6 (4.20-5.60); WHITE BLOOD COUNT 8.6 X10'3 (4.5-11.0)
[2020-01-15 03:53] LABS: ALANINE AMINOTRANSFERASE 25 U/L (12-78); ALBUMIN 4.3 G/DL (3.4-5.0); ALBUMIN/GLOBULIN RATIO 1.1 (1.1-1.5); ALKALINE PHOSPHATASE 59 IU/L (46-116); ANION GAP 16 (8-16); ASPARTATE AMINO TRANSFERASE 18 U/L (10-37); BILIRUBIN,TOTAL 0.3 MG/DL (0.1-1.0); BLOOD UREA NITROGEN 27 MG/DL (7-18); BUN/CREATININE RATIO 17.2 (6.6-38.0); CALCIUM 9.2 MG/DL (8.5-10.1); CHLORIDE 99 MMOL/L (99-107); CREATININE 1.57 MG/DL (0.40-0.90); GLUCOSE 131 MG/DL (70-104); LIPASE 312 U/L (73-393); SODIUM 133 MMOL/L (135-145); TOTAL CARBON DIOXIDE 18.5 MMOL/L (24-32); TOTAL PROTEIN 8.3 G/DL (6.4-8.2); eGFR 33 ML/MIN
[2020-01-15] MEDS ORDERED: morphine 4 MG/ML inj SYRINge IV ONE (05:40)
[2020-01-15 05:52] LABS: CLARITY,URINE CLEAR (Clear); COLOR,URINE YELLOW (Yellow); GLUCOSE, URINE NEGATIVE (Neg); KETONES,URINE NEGATIVE (Neg); LEUKOCYTE ESTERASE ,URINE NEGATIVE (Neg); NITRITES, URINE NEGATIVE (Neg); OCCULT BLOOD,URINE NEGATIVE (Neg); PROTEIN,URINE 30 mg/dl (Neg); UROBILINOGEN,URINE 0.2 E.U/dL (0.2-1.0)
[2020-01-15 05:57] LABS: UA COLLECTION TYPE CLN CATCH MIDSTREAM
[2020-01-15 05:58] LABS: BACTERIA,URINE NONE SEEN /HPF (Neg); RBC,URINE 0-2 /HPF (0-2); SQUAMOUS EPITHELIAL CELL,UR FEW /LPF (FEW); WBC,URINE NONE SEEN /HPF (0-4)
[2020-01-15] MEDS ORDERED: haloperidol lactate 5mg/ml inj IV ONE (07:00)
--- NOTE | 2020-01-15 08:00 | NUR ---
haldol administered left deltoid
[2020-01-15] MEDS ORDERED: METO-292 PO (09:27)
[2020-01-15 09:28] VITALS: BP 179/103
== END 2020-01-15 09:42 | disposition home or self-care (01) ==
LOC: ER 03:12
DX: G43.D1 Abdominal migraine, intractable (principal); R11.10 Vomiting, unspecified; I12.9 Hypertensive chronic kidney disease with stage 1 through stage 4 chronic kidney disease, or unspecified chronic kidney disease; N18.9 Chronic kidney disease, unspecified; G89.29 Other chronic pain; F41.9 Anxiety disorder, unspecified; F32.9 Major depressive disorder, single episode, unspecified; F12.90 Cannabis use, unspecified, uncomplicated; F17.210 Nicotine dependence, cigarettes, uncomplicated; Z90.710 Acquired absence of both cervix and uterus; Z98.51 Tubal ligation status; Z98.890 Other specified postprocedural states; Z90.49 Acquired absence of other specified parts of digestive tract; Z88.2 Allergy status to sulfonamides; Z79.899 Other long term (current) drug therapy
CPT/HCPCS: 36415; 74176; 80053; 81001; 83690; 84145; 85025; 96361; 96374; 96375; 99284; J1200; J1630; J2060; J2270; J2765; J7030

== ENCOUNTER 2020-03-03 15:26 | Inpatient (IN) | payer OTHER ==
[~2020-03-03] VITALS: Ht 157.5 cm; Wt 68.2 kg
[~2020-03-03 15:26] MED LIST changes: -AMLO2.5T2 PO; -CHLO25CA10 PO; -LOSA25TA96 PO; +METO-292 PO; -ONDA4TAB12 PO; -ONDA8TAB13 PO; -ONDA8TAB6 PO; -PANT20TA2 PO; -PANT40TA4 PO; +PANT40TA54 PO; -PROC-8 PO; -[UNRECOGNIZED DRUG - OTHER] PO
[2020-03-03 16:03] LABS: BASOPHILS % (AUTO) 0.3 % (0-1); EOSINOPHILS % (AUTO) 0.1 % (0-6); HEMATOCRIT 41.4 % (35.0-45.0); HEMOGLOBIN 14.4 g/dl (12.0-16.0); LYMPHOCYTES # (AUTO) 1.1 X10'3 (1.1-4.8); LYMPHOCYTES % (AUTO) 15.5 % (21-51); MEAN CORPUSCULAR HEMOGLOBIN 30.3 PG (27.0-31.0); MEAN CORPUSCULAR HGB CONC 34.7 g/dL (33.0-36.5); MEAN CORPUSCULAR VOLUME 87.4 FL (78-98); MEAN PLATELET VOLUME 8.2 FL (7.4-10.4); MONOCYTES # (AUTO) 0.4 X10'3 (0-0.9); MONOCYTES % (AUTO) 5.9 % (2-12); NEUTROPHILS # (AUTO) 5.4 X10'3 (1.8-7.7); NEUTROPHILS % (AUTO) 78.2 % (42-75); PLATELET COUNT 185 X10'3 (140-440); RED BLOOD COUNT 4.74 X10'6 (4.20-5.60); RED CELL DISTRIBUTION WIDTH 14.6 % (11.5-14.5); WHITE BLOOD COUNT 6.9 X10'3 (4.5-11.0)
[2020-03-03 16:15] LABS: ALANINE AMINOTRANSFERASE 31 U/L (12-78); ALBUMIN 4.8 G/DL (3.4-5.0); ALBUMIN/GLOBULIN RATIO 1.2 (1.1-1.5); ALKALINE PHOSPHATASE 100 IU/L (46-116); AMYLASE 48 U/L (25-115); ANION GAP 18 (8-16); ASPARTATE AMINO TRANSFERASE 27 U/L (10-37); BLOOD UREA NITROGEN 48 MG/DL (7-18); BUN/CREATININE RATIO 7.8 (6.6-38.0); CALCIUM 9.6 MG/DL (8.5-10.1); CHLORIDE 89 MMOL/L (99-107); CREATININE 6.19 MG/DL (0.40-0.90); GLUCOSE 119 MG/DL (70-104); LIPASE 302 U/L (73-393); POTASSIUM 4.1 MMOL/L (3.5-5.1); SODIUM 128 MMOL/L (135-145); TOTAL PROTEIN 8.8 G/DL (6.4-8.2); eGFR 7 ML/MIN
[2020-03-03] MEDS ORDERED: normal saline 1000ML IV soln IVB ONE (16:40)
[2020-03-03 16:49] LABS: CLARITY,URINE CLEAR (Clear); COLOR,URINE YELLOW (Yellow); GLUCOSE, URINE NEGATIVE (Neg); KETONES,URINE TRACE mg/dl (Neg); LEUKOCYTE ESTERASE ,URINE NEGATIVE (Neg); NITRITES, URINE NEGATIVE (Neg); OCCULT BLOOD,URINE TRACE-INTACT (Neg); PH,URINE 5.5 (4.8-8.0); PROTEIN,URINE >=300 mg/dl (Neg)
[2020-03-03 16:53] LABS: UA COLLECTION TYPE CLN CATCH MIDSTREAM
[2020-03-03 16:55] LABS: BACTERIA,URINE FEW /HPF (Neg); MUCUS STRANDS FEW /LPF (Neg); RBC,URINE 0-2 /HPF (0-2); SQUAMOUS EPITHELIAL CELL,UR MANY /LPF (FEW); WBC,URINE 20-30 /HPF (0-4)
[2020-03-03] MEDS ORDERED: pantoprazole 40 MG vial IV ONE (16:55)
[2020-03-03] MEDS ORDERED: potassium Cl 20 mEq SR tablet PO PRN (17:05)
[2020-03-03] MEDS ORDERED: magnesium 2GM in 50ml NS 50 ML IV PRN (17:05)
[2020-03-03] MEDS ORDERED: magnesium 4gm in 100ml NS 100 ML IV PRN (17:05)
[2020-03-03] MEDS ORDERED: potassium CL 10mEq/100ml bag 100 ML IV PRN ×2 (17:05)
[2020-03-03] MEDS ORDERED: acetaminophen 325mg tablet PO PRN (17:05)
[2020-03-03] MEDS ORDERED: morphine 2 MG/ML inj. syringe IV PRN ×2 (17:20→17:23)
[2020-03-03 17:28] LABS: ETHANOL < 0.010 GM/DL (0.0-0.010)
[2020-03-03] MEDS: normal saline 1000ml 1,000 ML IV SCH ×2 (17:28→20:59)
[2020-03-03 18:00] VITALS: BP 160/87
[2020-03-03] MEDS: ondansetron/PF 4mg/2ml inj IV PRN (19:21)
[2020-03-03] MEDS ORDERED: morphine 2 MG/ML inj. syringe IV ONE (19:35)
[2020-03-03 19:38] LABS: URINE AMPHETAMINE SCREEN NEGATIVE (Neg); URINE BARBITUATE SCREEN NEGATIVE (Neg); URINE BENZODIAZEPINES SCREEN NEGATIVE (Neg); URINE CANNABINOID SCREEN POSITIVE (Neg); URINE COCAINE SCREEN NEGATIVE (Neg); URINE METHADONE SCREEN NEGATIVE (Neg); URINE OPIATE SCREEN NEGATIVE (Neg); URINE PHENCYCLIDINE SCREEN NEGATIVE (Neg)
[2020-03-03] MEDS: hydrALAZINE 20mg/ml inj. IV PRN (19:41)
[2020-03-03] MEDS ORDERED: QUET25TA PO (19:46)
[2020-03-03] MEDS: K and/or MAG REPLACEMENT MC SCH (20:00)
--- NOTE | 2020-03-03 20:55 | NUR ---
PAGER ID: [phone] MESSAGE: [id number] Halima Morel: is requesting Ativan. She says she takes it prn at home but doesn't know the dose. Very anxious right now. -Isabelle [phone]
[2020-03-03] MEDS: LORazepam 2 mg/ml vial IV PRN (21:35)
[2020-03-03] MEDS: morphine 2 MG/ML inj. syringe IV PRN (21:35)
[2020-03-03 22:00] VITALS: BP 145/82
[2020-03-04] MEDS: ondansetron/PF 4mg/2ml inj IV PRN (02:09)
[2020-03-04] MEDS: morphine 2 MG/ML inj. syringe IV PRN ×5 (02:12→21:28)
[2020-03-04 02:28] VITALS: BP 112/72
[2020-03-04] MEDS: LORazepam 1 MG tablet PO PRN (03:36)
[2020-03-04] MEDS: normal saline 1000ml 1,000 ML IV SCH ×4 (03:38→21:26)
[2020-03-04 06:08] LABS: BASOPHILS % (AUTO) 0.2 % (0-1); EOSINOPHILS % (AUTO) 0.3 % (0-6); HEMATOCRIT 35.4 % (35.0-45.0); HEMOGLOBIN 12.1 g/dl (12.0-16.0); LYMPHOCYTES # (AUTO) 0.8 X10'3 (1.1-4.8); LYMPHOCYTES % (AUTO) 16.7 % (21-51); MEAN CORPUSCULAR HEMOGLOBIN 30.4 PG (27.0-31.0); MEAN CORPUSCULAR HGB CONC 34.3 g/dL (33.0-36.5); MEAN CORPUSCULAR VOLUME 88.6 FL (78-98); MEAN PLATELET VOLUME 8.3 FL (7.4-10.4); MONOCYTES # (AUTO) 0.4 X10'3 (0-0.9); MONOCYTES % (AUTO) 8.8 % (2-12); NEUTROPHILS # (AUTO) 3.7 X10'3 (1.8-7.7); PLATELET COUNT 124 X10'3 (140-440); RED BLOOD COUNT 3.99 X10'6 (4.20-5.60); RED CELL DISTRIBUTION WIDTH 14.5 % (11.5-14.5)
[2020-03-04 06:15] LABS: ALBUMIN 3.5 G/DL (3.4-5.0); ANION GAP 15 (8-16); BLOOD UREA NITROGEN 42 MG/DL (7-18); BUN/CREATININE RATIO 11.2 (6.6-38.0); CHLORIDE 96 MMOL/L (99-107); CREATININE 3.76 MG/DL (0.40-0.90); GLUCOSE 121 MG/DL (70-104); MAGNESIUM 1.2 MG/DL (1.5-2.4); SODIUM 130 MMOL/L (135-145); TOTAL CARBON DIOXIDE 19.4 MMOL/L (24-32); eGFR 12 ML/MIN
--- NOTE | 2020-03-04 06:22 | NUR ---
Problems reprioritized. Patient report given, questions answered & plan of care reviewed with AI Bhatt.
--- NOTE | 2020-03-04 06:51 | NUR ---
Patient in room PCU 3017. I have received report from AI Walton and had the opportunity to ask questions and assume patient care.
[2020-03-04 07:00] VITALS: BP 122/84
[2020-03-04] MEDS: magnesium Cl slow-release 64mg tablet PO PRN ×2 (07:49→21:26)
[2020-03-04] MEDS: LORazepam 2 mg/ml vial IV PRN ×3 (07:54→21:27)
[2020-03-04] MEDS: hydrALAZINE 20mg/ml inj. IV PRN (07:54)
[2020-03-04] MEDS: potassium Cl 20 mEq SR tablet PO PRN ×3 (08:00→16:44)
[2020-03-04] MEDS: K and/or MAG REPLACEMENT MC SCH ×2 (08:03→20:00)
[2020-03-04 11:00] VITALS: BP 157/98
--- NOTE | 2020-03-04 14:03 | NUR ---
Page to Zak. PAGER ID: [phone] MESSAGE: Patient Morel [id number]. Pt should be on PO ETOH vitamins, can I order? Folic, Thiamine, etc.. Thanks, Nova GONZALEZ [phone]
[2020-03-04 15:00] VITALS: BP 159/88
[2020-03-04] MEDS ORDERED: magnesium hydroxide 30ml (MOM) UD suspension PO ONE (17:35)
[2020-03-04 18:00] VITALS: BP 132/88
--- NOTE | 2020-03-04 18:11 | NUR ---
Problems reprioritized. Patient report given, questions answered & plan of care reviewed with AI Del Cid. Patient stable at transfer of care.
--- NOTE | 2020-03-04 18:13 | NUR ---
Patient in room PCU 3017. I have received report from Nova CLOUD and had the opportunity to ask questions and assume patient care.
[2020-03-04 21:18] LABS: OCCULT BLOOD STOOL NEGATIVE (Neg)
[2020-03-04 22:00] VITALS: BP 140/85
[2020-03-05 02:00] VITALS: BP 99/55
[2020-03-05] MEDS: ondansetron/PF 4mg/2ml inj IV PRN (05:18)
[2020-03-05] MEDS: morphine 2 MG/ML inj. syringe IV PRN ×2 (05:19→13:01)
[2020-03-05] MEDS: normal saline 1000ml 1,000 ML IV SCH ×3 (05:24→20:38)
[2020-03-05 05:58] LABS: BASOPHILS % (AUTO) 0.5 % (0-1); EOSINOPHILS % (AUTO) 0.8 % (0-6); HEMATOCRIT 35.9 % (35.0-45.0); HEMOGLOBIN 12.3 g/dl (12.0-16.0); LYMPHOCYTES # (AUTO) 1.9 X10'3 (1.1-4.8); MEAN CORPUSCULAR HEMOGLOBIN 30.4 PG (27.0-31.0); MEAN CORPUSCULAR HGB CONC 34.2 g/dL (33.0-36.5); MEAN CORPUSCULAR VOLUME 88.7 FL (78-98); MEAN PLATELET VOLUME 8.2 FL (7.4-10.4); MONOCYTES # (AUTO) 0.4 X10'3 (0-0.9); MONOCYTES % (AUTO) 8.9 % (2-12); NEUTROPHILS # (AUTO) 2.6 X10'3 (1.8-7.7); NEUTROPHILS % (AUTO) 51.8 % (42-75); PLATELET COUNT 126 X10'3 (140-440); RED BLOOD COUNT 4.04 X10'6 (4.20-5.60); RED CELL DISTRIBUTION WIDTH 14.5 % (11.5-14.5)
[2020-03-05 06:07] LABS: ALBUMIN 3.4 G/DL (3.4-5.0); ANION GAP 10 (8-16); BLOOD UREA NITROGEN 24 MG/DL (7-18); CALCIUM 8.1 MG/DL (8.5-10.1); CHLORIDE 102 MMOL/L (99-107); CREATININE 1.85 MG/DL (0.40-0.90); GLUCOSE 94 MG/DL (70-104); MAGNESIUM 1.2 MG/DL (1.5-2.4); POTASSIUM 4.2 MMOL/L (3.5-5.1); SODIUM 132 MMOL/L (135-145); TOTAL CARBON DIOXIDE 20.1 MMOL/L (24-32); eGFR 28 ML/MIN
--- NOTE | 2020-03-05 06:22 | NUR ---
Problems reprioritized. Patient report given, questions answered & plan of care reviewed with Nova CLOUD.
--- NOTE | 2020-03-05 06:28 | NUR ---
Patient in room PCU 3017. I have received report from AI Del Cid and had the opportunity to ask questions and assume patient care.
[2020-03-05 06:47] VITALS: BP 174/104
[2020-03-05] MEDS: LORazepam 2 mg/ml vial IV PRN ×2 (06:56→13:01)
[2020-03-05] MEDS: hydrALAZINE 20mg/ml inj. IV PRN ×2 (06:58→13:47)
[2020-03-05] MEDS: K and/or MAG REPLACEMENT MC SCH ×2 (07:18→20:00)
[2020-03-05] MEDS: LORazepam 1 MG tablet PO PRN ×2 (08:20→19:19)
[2020-03-05] MEDS: multivitamins, therapeutics tablet PO SCH (08:20)
[2020-03-05] MEDS: folic acid 1mg tablet PO SCH (08:20)
[2020-03-05] MEDS: thiamine 100mg tablet PO SCH (08:20)
--- NOTE | 2020-03-05 10:47 | NUR ---
Page to Zak. PAGER ID: [phone] MESSAGE: Pt Morel [id number]. Pt is not on Protonix or Carafate, progress notes say she is. Please advise. Nova [phone]
--- NOTE | 2020-03-05 10:50 | NUR ---
New telephone orders from Dr. Crespo. Protonix IV 40 mg BID, Carafate 1 gram QID.
[2020-03-05 11:00] VITALS: BP 174/86
[2020-03-05] MEDS: sucralfate 1gm/10ml UD suspension PO SCH ×3 (11:09→20:38)
[2020-03-05] MEDS: pantoprazole 40 MG vial IV SCH ×2 (11:09→19:19)
--- NOTE | 2020-03-05 13:39 | NUR ---
Problems reprioritized. Patient report given, questions answered & plan of care reviewed with AI Gomez.
[2020-03-05] MEDS: magnesium Cl slow-release 64mg tablet PO PRN (13:47)
[2020-03-05 14:30] VITALS: BP 145/71
--- NOTE | 2020-03-05 15:05 | NUR ---
Dr Crespo on the floor advised Dr Crespo that patient is requesting to have her Morphine changed to Dilaudid because the Dilaudid works better. Dr Crespo requested orders for patient pain medication be changed to [place] 5/325 Q4H prn for pain DC morphine .
[2020-03-05] MEDS: HYDROcodone/acetaminophen 5mg/325mg tablet PO PRN ×2 (17:20→21:25)
[2020-03-05 18:00] VITALS: BP 122/79
--- NOTE | 2020-03-05 18:59 | NUR ---
Problems reprioritized. Patient report given, questions answered & plan of care reviewed with Elisa Reyes RN.
[2020-03-06] VITALS: BP 109/62
[2020-03-06] MEDS: LORazepam 1 MG tablet PO PRN ×2 (02:15→08:45)
[2020-03-06] MEDS: magnesium Cl slow-release 64mg tablet PO PRN (02:15)
[2020-03-06] MEDS: normal saline 1000ml 1,000 ML IV SCH ×2 (02:18→07:57)
[2020-03-06] MEDS: HYDROcodone/acetaminophen 5mg/325mg tablet PO PRN ×2 (04:56→12:05)
[2020-03-06 05:21] LABS: ALBUMIN 3.1 G/DL (3.4-5.0); ANION GAP 8 (8-16); BLOOD UREA NITROGEN 16 MG/DL (7-18); BUN/CREATININE RATIO 10.7 (6.6-38.0); CALCIUM 7.3 MG/DL (8.5-10.1); CHLORIDE 103 MMOL/L (99-107); GLUCOSE 91 MG/DL (70-104); MAGNESIUM 1.2 MG/DL (1.5-2.4); POTASSIUM 3.7 MMOL/L (3.5-5.1); SODIUM 131 MMOL/L (135-145); TOTAL CARBON DIOXIDE 19.8 MMOL/L (24-32); eGFR 35 ML/MIN
[2020-03-06 05:23] LABS: BASOPHILS % (AUTO) 0.4 % (0-1); EOSINOPHILS # (AUTO) 0.1 X10'3 (0-0.9); EOSINOPHILS % (AUTO) 1.5 % (0-6); HEMATOCRIT 32.7 % (35.0-45.0); HEMOGLOBIN 11.2 g/dl (12.0-16.0); LYMPHOCYTES # (AUTO) 1.2 X10'3 (1.1-4.8); LYMPHOCYTES % (AUTO) 30.2 % (21-51); MEAN CORPUSCULAR HEMOGLOBIN 30.4 PG (27.0-31.0); MEAN CORPUSCULAR HGB CONC 34.2 g/dL (33.0-36.5); MEAN CORPUSCULAR VOLUME 88.8 FL (78-98); MEAN PLATELET VOLUME 8.2 FL (7.4-10.4); MONOCYTES # (AUTO) 0.4 X10'3 (0-0.9); MONOCYTES % (AUTO) 9.2 % (2-12); NEUTROPHILS # (AUTO) 2.3 X10'3 (1.8-7.7); NEUTROPHILS % (AUTO) 58.7 % (42-75); PLATELET COUNT 101 X10'3 (140-440); RED BLOOD COUNT 3.68 X10'6 (4.20-5.60); RED CELL DISTRIBUTION WIDTH 14.7 % (11.5-14.5); WHITE BLOOD COUNT 3.9 X10'3 (4.5-11.0)
--- NOTE | 2020-03-06 06:36 | NUR ---
Problems reprioritized. Patient report given, questions answered & plan of care reviewed with AI Gomez.
--- NOTE | 2020-03-06 06:37 | NUR ---
Patient in room JIAN 348. I have received report from Elisa Reyes RN and had the opportunity to ask questions and assume patient care.
--- NOTE | 2020-03-06 06:41 | NUR ---
Patient in room JIAN 348. I have received report from Patricia CLOUD and had the opportunity to ask questions and assume patient care.
[2020-03-06 07:12] VITALS: BP 152/79
[2020-03-06] MEDS: multivitamins, therapeutics tablet PO SCH ×2 (07:47→08:00)
[2020-03-06] MEDS: pantoprazole 40 MG vial IV SCH (07:50)
[2020-03-06] MEDS: K and/or MAG REPLACEMENT MC SCH (08:00)
[2020-03-06] MEDS: folic acid 1mg tablet PO SCH (08:44)
[2020-03-06] MEDS: thiamine 100mg tablet PO SCH (08:46)
[2020-03-06] MEDS: sucralfate 1gm/10ml UD suspension PO SCH ×2 (08:47→11:29)
[2020-03-06 10:37] VITALS: BP 137/78
[2020-03-06] MEDS ORDERED: amLODIPine 5mg tablet PO SCH (11:00)
[2020-03-06 11:24] VITALS: BP 141/72
--- NOTE | 2020-03-06 12:22 | NUR ---
Problems reprioritized. Patient report given, questions answered & plan of care reviewed with Patricia CLOUD.
[2020-03-06 12:45] VITALS: BP 148/84
--- NOTE | 2020-03-06 13:10 | NUR ---
REVIEWED STUDENT NURSE CHARTING
--- NOTE | 2020-03-06 13:12 | NUR ---
Student documentation: I have reviewed and agree with all interventions, assessments performed and documented by Ric, nursing teacher.
--- NOTE | 2020-03-06 13:13 | NUR ---
Student Medication Administration: For this medication-pass time frame, all medication were reviewed, dispensed, administered and documented per hospital policy by Ric state tested nursing assistant.
--- NOTE | 2020-03-06 15:25 | NUR ---
Patients discharge reviewed with patient and patient verbalized understanding. Patients IV dc'd cannula intact. Patient was taken to lobby for discharge via wheelchair states she has all her belongings. No new Rx's
[2020-03-06] MEDS ORDERED: QUEtiapine 25mg tablet PO SCH (21:00)
[2020-03-07] MEDS ORDERED: levoTHYROXINE 25mcg tablet PO SCH (08:00)
[2020-03-07] MEDS ORDERED: levoTHYROXINE 112mcg tablet PO SCH (08:00)
== END 2020-03-06 15:26 | disposition home or self-care (01) | DRG 640 ==
LOC: ER 15:27 → ED HOLD 17:02 → PCU 3S 20:00 → SUR 3N 03-05 14:00
PROVIDERS: ADMIT Internal Medicine; ATTEND Internal Medicine
DX: E86.0 Dehydration (principal); N17.0 Acute kidney failure with tubular necrosis; E87.1 Hypo-osmolality and hyponatremia; B18.2 Chronic viral hepatitis C; E03.9 Hypothyroidism, unspecified; E87.6 Hypokalemia; F10.20 Alcohol dependence, uncomplicated; I12.9 Hypertensive chronic kidney disease with stage 1 through stage 4 chronic kidney disease, or unspecified chronic kidney disease; N18.9 Chronic kidney disease, unspecified; F12.90 Cannabis use, unspecified, uncomplicated; F32.9 Major depressive disorder, single episode, unspecified; F41.9 Anxiety disorder, unspecified; G89.29 Other chronic pain; Z90.710 Acquired absence of both cervix and uterus; Z88.2 Allergy status to sulfonamides; Z90.49 Acquired absence of other specified parts of digestive tract; Z98.51 Tubal ligation status; Z79.899 Other long term (current) drug therapy; Z79.890 Hormone replacement therapy
CPT/HCPCS: 36415; 76937; 80048; 80053; 80305; 80320; 81001; 82150; 82272; 83690; 83735; 85025; 87081; 99285; C9113; G0378; J0360; J2060; J2270; J2405; J3475; J7030

== ENCOUNTER 2020-03-12 12:03 | Emergency (ER) | payer OTHER ==
[~2020-03-12] VITALS: Ht 157.5 cm; Wt 71.1 kg
[~2020-03-12 12:03] MED LIST changes: -METO-292 PO; +QUET25TA PO; -SUCR1ORA12 PO
[2020-03-12 12:12] VITALS: BP 199/113
--- NOTE | 2020-03-12 13:38 | NUR ---
Spoke with Registration who stated that patient walked out of ED lobby without notifying anyone at some point after triage.
--- NOTE | 2020-03-12 13:39 | NUR ---
Attempted to call patient, left voice mail.
[2020-03-22] MEDS ORDERED: LORA-269 PO (17:33)
[2020-03-22] MEDS ORDERED: ESCI10TA61 PO (17:33)
[2020-03-22] MEDS ORDERED: LEVO137T2 PO (17:33)
[2020-03-22] MEDS ORDERED: PANT40TA54 PO (17:33)
[2020-03-22] MEDS ORDERED: LOSA100T57 PO (17:33)
[2020-03-22] MEDS ORDERED: PROC5TAB10 PO (17:33)
== END 2020-03-12 13:44 | disposition left against medical advice (07) ==
LOC: ER 12:04
DX: R10.30 Lower abdominal pain, unspecified (principal); I10 Essential (primary) hypertension; G89.29 Other chronic pain; I12.9 Hypertensive chronic kidney disease with stage 1 through stage 4 chronic kidney disease, or unspecified chronic kidney disease; N18.9 Chronic kidney disease, unspecified; F41.9 Anxiety disorder, unspecified; F32.9 Major depressive disorder, single episode, unspecified; F12.90 Cannabis use, unspecified, uncomplicated; F10.10 Alcohol abuse, uncomplicated; Z86.19 Personal history of other infectious and parasitic diseases; Z90.710 Acquired absence of both cervix and uterus; Z98.51 Tubal ligation status; Z98.890 Other specified postprocedural states; Z88.2 Allergy status to sulfonamides; Z79.899 Other long term (current) drug therapy; Y90.9 Presence of alcohol in blood, level not specified
CPT/HCPCS: 99283

== ENCOUNTER 2020-09-25 18:02 | Emergency (ER) | payer MEDICARE, OTHER ==
[~2020-09-25] VITALS: Ht 157.5 cm; Wt 68.2 kg
[~2020-09-25 18:02] MED LIST changes: +CYCL-1 PO; +ESCI-8 PO; +HYDR-4383 PO; +LORA-269 PO; +LOSA100T57 PO; -NOR5T PO; +PROC5TAB10 PO; -QUET25TA PO
[2020-09-25] MEDS ORDERED: LORazepam 2 mg/ml vial IV ONE ×2 (18:50→19:20)
[2020-09-25] MEDS ORDERED: normal saline 1000ML IV soln IVB ONE (18:50)
[2020-09-25] MEDS ORDERED: ondansetron/PF 4mg/2ml inj IV ONE (18:50)
[2020-09-25 18:59] LABS: BASOPHILS % (AUTO) 0.4 % (0-1); EOSINOPHILS % (AUTO) 0.1 % (0-6); HEMATOCRIT 44.3 % (35.0-45.0); HEMOGLOBIN 14.7 g/dl (12.0-16.0); LYMPHOCYTES # (AUTO) 1.8 X10'3 (1.1-4.8); LYMPHOCYTES % (AUTO) 20.4 % (21-51); MEAN CORPUSCULAR HEMOGLOBIN 28.5 PG (27.0-31.0); MEAN CORPUSCULAR HGB CONC 33.2 g/dL (33.0-36.5); MEAN CORPUSCULAR VOLUME 85.9 FL (78-98); MEAN PLATELET VOLUME 7.6 FL (7.4-10.4); MONOCYTES # (AUTO) 0.3 X10'3 (0-0.9); MONOCYTES % (AUTO) 3.2 % (2-12); NEUTROPHILS # (AUTO) 6.8 X10'3 (1.8-7.7); NEUTROPHILS % (AUTO) 75.9 % (42-75); PLATELET COUNT 281 X10'3 (140-440); RED BLOOD COUNT 5.16 X10'6 (4.20-5.60); RED CELL DISTRIBUTION WIDTH 15.7 % (11.5-14.5); WHITE BLOOD COUNT 8.9 X10'3 (4.5-11.0)
[2020-09-25 19:07] LABS: ALANINE AMINOTRANSFERASE 34 U/L (12-78); ALBUMIN 4.4 G/DL (3.4-5.0); ALBUMIN/GLOBULIN RATIO 1.1 (1.1-1.5); ALKALINE PHOSPHATASE 109 IU/L (46-116); AMYLASE 44 U/L (25-115); ANION GAP 23 (8-16); ASPARTATE AMINO TRANSFERASE 45 U/L (10-37); BILIRUBIN,TOTAL 0.5 MG/DL (0.1-1.0); BLOOD UREA NITROGEN 25 MG/DL (7-18); BUN/CREATININE RATIO 22.1 (6.6-38.0); CALCIUM 9.5 MG/DL (8.5-10.1); CHLORIDE 102 MMOL/L (99-107); CREATININE 1.13 MG/DL (0.40-0.90); GLUCOSE 133 MG/DL (70-104); LIPASE 91 U/L (73-393); POTASSIUM 3.6 MMOL/L (3.5-5.1); SODIUM 141 MMOL/L (135-145); TOTAL CARBON DIOXIDE 16.1 MMOL/L (24-32); TOTAL PROTEIN 8.5 G/DL (6.4-8.2); eGFR 49 ML/MIN
[2020-09-25] MEDS ORDERED: morphine 4 MG/ML inj SYRINge IV ONE (19:15)
[2020-09-25] MEDS ORDERED: famotidine/PF 10 mg/ml inj IV ONE (19:20)
[2020-09-25 19:40] LABS: URINE HCG NEGATIVE (NEG)
[2020-09-25 19:42] LABS: CLARITY,URINE CLEAR (Clear); COLOR,URINE YELLOW (Yellow); GLUCOSE, URINE NEGATIVE (Neg); KETONES,URINE NEGATIVE (Neg); LEUKOCYTE ESTERASE ,URINE NEGATIVE (Neg); NITRITES, URINE NEGATIVE (Neg); OCCULT BLOOD,URINE SMALL (Neg); PROTEIN,URINE >=300 mg/dl (Neg); UROBILINOGEN,URINE 0.2 E.U/dL (0.2-1.0)
--- NOTE | 2020-09-25 19:51 | NUR ---
pt asked MD, "can I get some Dilaudid"?
[2020-09-25 19:54] LABS: UA COLLECTION TYPE CLN CATCH MIDSTREAM
[2020-09-25 19:56] LABS: ETHANOL 0.076 GM/DL (0.0-0.010)
[2020-09-25 19:57] LABS: RBC,URINE 0-2 /HPF (0-2); WBC,URINE 0-4 /HPF (0-4)
[2020-09-25 19:58] LABS: BACTERIA,URINE NONE SEEN /HPF (Neg); HYALINE CASTS 0-3 /LPF (NEGATIVE); SQUAMOUS EPITHELIAL CELL,UR FEW /LPF (FEW)
[2020-09-25] MEDS ORDERED: mag hydrox/Alum hydrox/simeth 30ml oral suspension PO ONE (20:50)
[2020-09-25] MEDS ORDERED: LIDOcaine Viscous 15ml cup MM ONE (20:50)
[2020-09-25 21:27] VITALS: BP 215/119
== END 2020-09-25 21:30 | disposition home or self-care (01) ==
LOC: ER 18:02
DX: K29.20 Alcoholic gastritis without bleeding (principal); F10.10 Alcohol abuse, uncomplicated; R11.0 Nausea; R19.7 Diarrhea, unspecified; R10.13 Epigastric pain; I12.9 Hypertensive chronic kidney disease with stage 1 through stage 4 chronic kidney disease, or unspecified chronic kidney disease; N18.9 Chronic kidney disease, unspecified; G89.29 Other chronic pain; F41.9 Anxiety disorder, unspecified; F32.9 Major depressive disorder, single episode, unspecified; F12.90 Cannabis use, unspecified, uncomplicated; Z86.19 Personal history of other infectious and parasitic diseases; Z90.49 Acquired absence of other specified parts of digestive tract; Z90.710 Acquired absence of both cervix and uterus; Z98.51 Tubal ligation status; Z72.89 Other problems related to lifestyle; Z88.2 Allergy status to sulfonamides; Z79.899 Other long term (current) drug therapy
CPT/HCPCS: 36415; 80053; 80320; 81001; 81025; 82150; 83690; 85025; 96361; 96374; 96375; 96376; 99284; J2060; J2270; J2405; J3490; J7030

== ENCOUNTER 2021-04-29 16:49 | Inpatient (IN) | payer MEDICARE, OTHER ==
[~2021-04-29] VITALS: Ht 157.5 cm; Wt 68.0 kg
[2021-04-29 19:18] LABS: BASOPHILS % (AUTO) 0.5 % (0-1); EOSINOPHILS % (AUTO) 0.2 % (0-6); HEMOGLOBIN 13.9 g/dl (12.0-16.0); LYMPHOCYTES # (AUTO) 1.4 X10'3 (1.1-4.8); LYMPHOCYTES % (AUTO) 22.4 % (21-51); MEAN CORPUSCULAR HGB CONC 35.8 g/dL (33.0-36.5); MEAN CORPUSCULAR VOLUME 80.9 FL (78-98); MEAN PLATELET VOLUME 7.8 FL (7.4-10.4); MONOCYTES # (AUTO) 0.3 X10'3 (0-0.9); MONOCYTES % (AUTO) 5.5 % (2-12); NEUTROPHILS # (AUTO) 4.4 X10'3 (1.8-7.7); NEUTROPHILS % (AUTO) 71.4 % (42-75); PLATELET COUNT 318 X10'3 (140-440); RED BLOOD COUNT 4.82 X10'6 (4.20-5.60); RED CELL DISTRIBUTION WIDTH 12.9 % (11.5-14.5); WHITE BLOOD COUNT 6.2 X10'3 (4.5-11.0)
[2021-04-29 19:26] LABS: ALANINE AMINOTRANSFERASE 50 U/L (12-78); ALBUMIN 4.7 G/DL (3.4-5.0); ALBUMIN/GLOBULIN RATIO 1.2 (1.1-1.5); ALKALINE PHOSPHATASE 64 IU/L (46-116); ANION GAP 17 (8-16); ASPARTATE AMINO TRANSFERASE 33 U/L (10-37); BILIRUBIN,TOTAL 0.8 MG/DL (0.1-1.0); BLOOD UREA NITROGEN 51 MG/DL (7-18); BUN/CREATININE RATIO 17.7 (6.6-38.0); CALCIUM 9.8 MG/DL (8.5-10.1); CHLORIDE 93 MMOL/L (99-107); CREATININE 2.88 MG/DL (0.40-0.90); GLUCOSE 112 MG/DL (70-104); LIPASE 65 U/L (73-393); POTASSIUM 3.1 MMOL/L (3.5-5.1); SODIUM 134 MMOL/L (135-145); TOTAL CARBON DIOXIDE 24.3 MMOL/L (24-32); TOTAL PROTEIN 8.6 G/DL (6.4-8.2); eGFR 16 ML/MIN
[2021-04-29 19:27] LABS: CLARITY,URINE SLIGHTLY CLOUDY (Clear); COLOR,URINE YELLOW (Yellow); GLUCOSE, URINE NEGATIVE (Neg); KETONES,URINE NEGATIVE (Neg); LEUKOCYTE ESTERASE ,URINE NEGATIVE (Neg); NITRITES, URINE NEGATIVE (Neg); OCCULT BLOOD,URINE NEGATIVE (Neg); PROTEIN,URINE 30 mg/dl (Neg); UA COLLECTION TYPE CLN CATCH MIDSTREAM; UROBILINOGEN,URINE 0.2 E.U/dL (0.2-1.0)
[2021-04-29 19:29] LABS: SQUAMOUS EPITHELIAL CELL,UR MODERATE /LPF (FEW)
[2021-04-29 19:30] LABS: BACTERIA,URINE 2+ /HPF (Neg); CELLULAR CAST 0-4 /LPF (NEGATIVE); MUCUS STRANDS FEW /LPF (Neg); RBC,URINE 0-2 /HPF (0-2)
[2021-04-29 19:31] LABS: WBC,URINE 20-30 /HPF (0-4)
[2021-04-30] VITALS (10 sets, daily range): BP systolic 101–122; BP diastolic 52–69
[2021-04-30] MEDS ORDERED: ondansetron/PF 4mg/2ml inj IV ONE (00:20)
[2021-04-30] MEDS ORDERED: normal saline 1000ML IV soln IVB ONE (00:20)
--- NOTE | 2021-04-30 00:25 | NUR ---
Person to contact if needed: Edward Parks [phone]
[2021-04-30] MEDS ORDERED: CefTRIAXone/D5W-Rocephin 1gm 50 ML IV ONE (00:30)
[2021-04-30] MEDS ORDERED: POTASSIUM BICARB 20meq eff tab 20 MEQ TABLET.EFF PO ONE (01:05)
[2021-04-30] MEDS ORDERED: potassium Cl 10 mEq/100mL bag IV ONE (01:05)
[2021-04-30] MEDS: heparin 25,000 UNIT/250ml bag 250 ML IV SCH (02:25)
[2021-04-30] MEDS ORDERED: heparin 10,000 units/1 ML INJ IV ONE ×2 (02:25→02:30)
[2021-04-30] MEDS ORDERED: aspirin 325mg tablet PO ONE (02:25)
[2021-04-30] MEDS ORDERED: LORazepam 2 mg/ml vial IV ONE (02:30)
[2021-04-30 03:14] LABS: BASOPHILS % (AUTO) 0.5 % (0-1); EOSINOPHILS % (AUTO) 0.8 % (0-6); HEMATOCRIT 35.6 % (35.0-45.0); HEMOGLOBIN 12.6 g/dl (12.0-16.0); LYMPHOCYTES # (AUTO) 2.1 X10'3 (1.1-4.8); LYMPHOCYTES % (AUTO) 37.4 % (21-51); MEAN CORPUSCULAR HEMOGLOBIN 29.1 PG (27.0-31.0); MEAN CORPUSCULAR HGB CONC 35.3 g/dL (33.0-36.5); MEAN CORPUSCULAR VOLUME 82.2 FL (78-98); MEAN PLATELET VOLUME 7.5 FL (7.4-10.4); MONOCYTES # (AUTO) 0.6 X10'3 (0-0.9); MONOCYTES % (AUTO) 9.8 % (2-12); NEUTROPHILS % (AUTO) 51.5 % (42-75); PLATELET COUNT 249 X10'3 (140-440); RED BLOOD COUNT 4.33 X10'6 (4.20-5.60); RED CELL DISTRIBUTION WIDTH 13.2 % (11.5-14.5); WHITE BLOOD COUNT 5.7 X10'3 (4.5-11.0)
[2021-04-30 03:27] LABS: PARTIAL THROMBOPLASTIN TIME 26 SECONDS (22-32)
[2021-04-30] MEDS ORDERED: magnesium Cl slow-release 64mg tablet PO PRN (04:10)
[2021-04-30] MEDS ORDERED: ondansetron/PF 4mg/2ml inj IV PRN (04:10)
[2021-04-30] MEDS ORDERED: magnesium 2GM in 50ml NS 50 ML IV PRN (04:10)
[2021-04-30] MEDS ORDERED: potassium Cl 40MEQ/1/2NS 520ml 520 ML IV PRN ×2 (04:10)
[2021-04-30] MEDS: normal saline 1000ml 1,000 ML IV SCH ×2 (04:10→16:30)
[2021-04-30] MEDS ORDERED: potassium Cl 20 mEq SR tablet PO PRN (04:10)
[2021-04-30] MEDS ORDERED: acetaminophen 325mg tablet PO PRN (04:10)
[2021-04-30] MEDS ORDERED: magnesium 4gm in 100ml NS 100 ML IV PRN (04:10)
[2021-04-30] MEDS ORDERED: FERR324T PO (04:52)
[2021-04-30] MEDS ORDERED: AMLO10TA13 PO (05:00)
[2021-04-30] MEDS ORDERED: LIOT5TAB10 PO (05:00)
[2021-04-30] MEDS ORDERED: DULO60CA65 PO (05:00)
[2021-04-30] MEDS ORDERED: LEVO150T8 PO (05:01)
[2021-04-30] MEDS ORDERED: nitroGLYCERIN 0.4mg SUBLingual tab SL PRN (07:45)
[2021-04-30] MEDS ORDERED: metoprolol tartrate 1mg/ml inj IV PRN (07:45)
[2021-04-30] MEDS ORDERED: aminophylline 250mg/10ml inj. IV PRN (07:45)
[2021-04-30] MEDS ORDERED: regadenoson 0.4mg/5ml syringe IV ONE ×2 (07:45→07:55)
--- NOTE | 2021-04-30 07:45 | NUR ---
HOSPITALIST DR. PATTERSON CONTACTED AND INQUIRED IF PT TO RECEIVE DIET OR TO HAVE STRESS TEST. RECEIVED VO FOR [facility] LABS TO BE DRAWN AND TO ORDER STRESS TEST.
[2021-04-30 08:33] LABS: PARTIAL THROMBOPLASTIN TIME 87 SECONDS (22-32)
[2021-04-30] MEDS ORDERED: BUPR2TAB11 PO (08:37)
[2021-04-30] MEDS ORDERED: BACL10TA2 PO (08:37)
[2021-04-30] MEDS ORDERED: BUPRENORPHINE 2 MG SL PRN (08:45)
[2021-04-30] MEDS ORDERED: baclofen 10mg tablet PO PRN (08:45)
[2021-04-30] MEDS ORDERED: liothyronine sod 5mcg tablet PO SCH (08:59)
[2021-04-30] MEDS: CefTRIAXone/D5W-Rocephin 1gm 50 ML IV SCH (09:13)
--- NOTE | 2021-04-30 10:00 | NUR ---
Pt heparin rate changed to 684 units/hr per protocol. Dose changed at bedside and verified with AI Rodas from [employer] prior to taking pt to have stress test.
--- NOTE | 2021-04-30 10:00 | NUR ---
PT TAKEN TO HAVE STRESS TEST
[2021-04-30] MEDS: K and/or MAG REPLACEMENT MC SCH ×2 (12:25→20:00)
--- NOTE | 2021-04-30 12:26 | NUR ---
pt getting morning meds, back from Stress test.
[2021-04-30] MEDS: levoTHYROXINE 75mcg tablet PO SCH (12:31)
[2021-04-30] MEDS: amLODIPine 5mg tablet PO SCH (12:31)
[2021-04-30] MEDS: HYDROcodone/acetaminophen 5mg/325mg tablet PO PRN ×2 (12:31→17:43)
[2021-04-30] MEDS: LORazepam 1 MG tablet PO SCH (12:31)
[2021-04-30] MEDS: potassium Cl 20 mEq SR tablet PO PRN (12:32)
[2021-04-30] MEDS ORDERED: pantoprazole 40 MG vial IV ONE (13:00)
[2021-04-30] MEDS ORDERED: LORazepam 2 mg/ml vial IV PRN (13:55)
[2021-04-30] MEDS: heparin 10,000 units/1 ML INJ IV PRN (17:50)
--- NOTE | 2021-04-30 21:15 | NUR ---
Received report from AI Rosa VSS
[2021-05-01] MEDS: normal saline 1000ml 1,000 ML IV SCH ×2 (00:10→05:03)
[2021-05-01] MEDS: heparin 10,000 units/1 ML INJ IV PRN (00:47)
--- NOTE | 2021-05-01 00:51 | NUR ---
Cardiac PTT 40 Rate change for heparin drip Addendum: 05/01/21 at 0055 by Earlene Castillo RN rate changed from 820 units/hr to 1020 units / hr and a bolus of 2500 units at 0051
[2021-05-01] MEDS: pantoprazole 40 MG vial IV SCH ×2 (01:01→08:14)
[2021-05-01] MEDS: lactobacillus rhamnosus 10,000 MMU CELLS/CAPSULE PO SCH ×2 (01:01→08:15)
[2021-05-01 02:00] VITALS: BP 93/53
[2021-05-01 04:00] VITALS: BP 98/58
[2021-05-01 06:00] VITALS: BP 119/67
[2021-05-01] MEDS: levoTHYROXINE 75mcg tablet PO SCH (06:58)
--- NOTE | 2021-05-01 07:23 | NUR ---
Patient in room PCU 3016. I have received report from AI Gates and had the opportunity to ask questions and assume patient care.
[2021-05-01 07:58] LABS: BASOPHILS # (AUTO) 0.1 X10'3 (0-0.2); BASOPHILS % (AUTO) 1.4 % (0-1); EOSINOPHILS # (AUTO) 0.1 X10'3 (0-0.9); EOSINOPHILS % (AUTO) 3.8 % (0-6); HEMATOCRIT 32.9 % (35.0-45.0); HEMOGLOBIN 11.5 g/dl (12.0-16.0); LYMPHOCYTES # (AUTO) 1.3 X10'3 (1.1-4.8); LYMPHOCYTES % (AUTO) 32.9 % (21-51); MEAN CORPUSCULAR HEMOGLOBIN 29.3 PG (27.0-31.0); MEAN CORPUSCULAR HGB CONC 34.9 g/dL (33.0-36.5); MEAN CORPUSCULAR VOLUME 83.9 FL (78-98); MEAN PLATELET VOLUME 8.3 FL (7.4-10.4); MONOCYTES # (AUTO) 0.4 X10'3 (0-0.9); MONOCYTES % (AUTO) 10.2 % (2-12); NEUTROPHILS % (AUTO) 51.7 % (42-75); PLATELET COUNT 189 X10'3 (140-440); RED BLOOD COUNT 3.93 X10'6 (4.20-5.60); RED CELL DISTRIBUTION WIDTH 13.3 % (11.5-14.5); WHITE BLOOD COUNT 3.8 X10'3 (4.5-11.0)
[2021-05-01] MEDS ORDERED: ferrous gluconate 324mg tablet PO SCH (08:00)
[2021-05-01] MEDS: CefTRIAXone/D5W-Rocephin 1gm 50 ML IV SCH (08:14)
[2021-05-01] MEDS: amLODIPine 5mg tablet PO SCH (08:14)
[2021-05-01] MEDS: HYDROcodone/acetaminophen 5mg/325mg tablet PO PRN (08:15)
[2021-05-01] MEDS: LORazepam 1 MG tablet PO SCH (08:15)
[2021-05-01 08:27] LABS: ALBUMIN 3.5 G/DL (3.4-5.0); ANION GAP 11 (8-16); BLOOD UREA NITROGEN 37 MG/DL (7-18); BUN/CREATININE RATIO 18.9 (6.6-38.0); CALCIUM 8.7 MG/DL (8.5-10.1); CHLORIDE 102 MMOL/L (99-107); CREATININE 1.96 MG/DL (0.40-0.90); GLUCOSE 93 MG/DL (70-104); MAGNESIUM 1.6 MG/DL (1.5-2.4); POTASSIUM 3.3 MMOL/L (3.5-5.1); SODIUM 137 MMOL/L (135-145); TOTAL CARBON DIOXIDE 23.9 MMOL/L (24-32); eGFR 26 ML/MIN
[2021-05-01] MEDS: potassium Cl 20 mEq SR tablet PO PRN (10:37)
[2021-05-01 11:00] VITALS: BP 123/63
[2021-05-01] MEDS: heparin 25,000 UNIT/250ml bag 250 ML IV SCH (12:10)
[2021-05-01] MEDS ORDERED: CEFD300C3 PO (13:57)
[2021-05-01] MEDS ORDERED: LACT1CAP26 PO (13:57)
[2021-05-01] MEDS ORDERED: PANT40TA54 PO (13:57)
[2021-05-01] MEDS ORDERED: ASPI-611 PO (13:57)
[2021-05-01] MEDS ORDERED: FOLI0.4T6 PO (15:49)
[2021-05-01] MEDS ORDERED: THIA50TA10 PO (15:49)
[2021-05-01] MEDS ORDERED: MULT-1085 PO (15:49)
[2021-05-01 16:00] VITALS: BP 107/63
== END 2021-05-01 16:24 | disposition home or self-care (01) | DRG 391 ==
LOC: ER 16:50 → ED HOLD 04-30 04:10 → PCU 3S 04-30 21:46
PROVIDERS: ADMIT Internal Medicine; ATTEND Family Medicine
PROC: 4A02XM4 Measurement of Cardiac Total Activity, External Approach (ICD-10-PCS; principal; 2021-04-30)
PROC: 3E073KZ Introduction of Other Diagnostic Substance into Coronary Artery, Percutaneous Approach (ICD-10-PCS; 2021-04-30)
DX: K21.9 Gastro-esophageal reflux disease without esophagitis (principal); N17.0 Acute kidney failure with tubular necrosis; N39.0 Urinary tract infection, site not specified; K29.70 Gastritis, unspecified, without bleeding; E86.0 Dehydration; N18.9 Chronic kidney disease, unspecified; E03.9 Hypothyroidism, unspecified; B96.20 Unspecified Escherichia coli [E. coli] as the cause of diseases classified elsewhere; B19.20 Unspecified viral hepatitis C without hepatic coma; F32.A Depression, unspecified; F12.90 Cannabis use, unspecified, uncomplicated; Z20.822 Contact with and (suspected) exposure to COVID-19; G89.4 Chronic pain syndrome; F10.20 Alcohol dependence, uncomplicated; E87.6 Hypokalemia; F41.9 Anxiety disorder, unspecified; K57.90 Diverticulosis of intestine, part unspecified, without perforation or abscess without bleeding; R77.8 Other specified abnormalities of plasma proteins; I12.9 Hypertensive chronic kidney disease with stage 1 through stage 4 chronic kidney disease, or unspecified chronic kidney disease; Z79.890 Hormone replacement therapy; Z87.442 Personal history of urinary calculi; Z90.710 Acquired absence of both cervix and uterus; Z88.2 Allergy status to sulfonamides; Z90.49 Acquired absence of other specified parts of digestive tract; Z98.51 Tubal ligation status; Z79.899 Other long term (current) drug therapy; Z71.41 Alcohol abuse counseling and surveillance of alcoholic
CPT/HCPCS: 36415; 71045; 78452; 80048; 80053; 81001; 83690; 83735; 84484; 85025; 85610; 85730; 87077; 87088; 87186; 87635; 93005; 93017; 99285; A9500; C9113; G0378; J0280; J0696; J1644; J2060; J2405; J2785; J3480; J7030

== ENCOUNTER 2022-02-21 08:21 | Emergency (ER) | payer MEDICARE, OTHER ==
[~2022-02-21] VITALS: Ht 157.5 cm; Wt 68.2 kg
[~2022-02-21 08:21] MED LIST changes: +AMLO10TA13 PO; +BACL10TA2 PO; +BUPR2TAB11 PO; -CYCL-1 PO; -ESCI-8 PO; +FERR324T PO; -HYDR-4383 PO; +LACT1CAP26 PO; -LEVO137T2 PO; +LEVO150T8 PO; +LIOT5TAB10 PO; -LOSA100T57 PO; +MULT-1085 PO; -PROC5TAB10 PO; +THIA50TA10 PO
[2022-02-21 10:38] LABS: BASOPHILS % (AUTO) 0.8 % (0-1); EOSINOPHILS # (AUTO) 0.1 X10'3 (0-0.9); EOSINOPHILS % (AUTO) 2.1 % (0-6); HEMATOCRIT 43.1 % (35.0-45.0); HEMOGLOBIN 14.7 g/dl (12.0-16.0); LYMPHOCYTES # (AUTO) 1.6 X10'3 (1.1-4.8); MEAN CORPUSCULAR HEMOGLOBIN 30.5 PG (27.0-31.0); MEAN CORPUSCULAR HGB CONC 34.1 g/dL (33.0-36.5); MEAN CORPUSCULAR VOLUME 89.6 FL (78-98); MEAN PLATELET VOLUME 8.6 FL (7.4-10.4); MONOCYTES # (AUTO) 0.4 X10'3 (0-0.9); MONOCYTES % (AUTO) 7.9 % (2-12); NEUTROPHILS # (AUTO) 2.5 X10'3 (1.8-7.7); NEUTROPHILS % (AUTO) 55.2 % (42-75); PLATELET COUNT 258 X10'3 (140-440); RED BLOOD COUNT 4.81 X10'6 (4.20-5.60); RED CELL DISTRIBUTION WIDTH 14.7 % (11.5-14.5); WHITE BLOOD COUNT 4.6 X10'3 (4.5-11.0)
[2022-02-21 11:05] LABS: ALANINE AMINOTRANSFERASE 26 U/L (12-78); ALBUMIN 4.9 G/DL (3.4-5.0); ALBUMIN/GLOBULIN RATIO 1.3 (1.1-1.5); ALKALINE PHOSPHATASE 83 IU/L (46-116); ANION GAP 15 (8-16); ASPARTATE AMINO TRANSFERASE 22 U/L (10-37); BILIRUBIN,TOTAL 0.8 MG/DL (0.1-1.0); BLOOD UREA NITROGEN 22 MG/DL (7-18); BUN/CREATININE RATIO 12.4 (6.6-38.0); CALCIUM 10.1 MG/DL (8.5-10.1); CHLORIDE 99 MMOL/L (99-107); CREATININE 1.77 MG/DL (0.40-0.90); GLUCOSE 92 MG/DL (70-104); LIPASE 56 U/L (73-393); POTASSIUM 3.2 MMOL/L (3.5-5.1); SODIUM 139 MMOL/L (135-145); TOTAL CARBON DIOXIDE 25.2 MMOL/L (24-32); TOTAL PROTEIN 8.8 G/DL (6.4-8.2); eGFR 29 ML/MIN
--- NOTE | 2022-02-21 11:12 | NUR ---
PT WAS ENCOURAGED BY REGISTRATION TO STAY. PT STATED SHE WANTS TO GO HOME AND TRY TO EAT SOMETHING AND TAKE A NAP. I NOTIFIED MD SOON REGISTRATION ANNOUNCED PT WAS LEAVING. I ALSO ATTEMPTED TO FIND PT IN PARKING LOT BUT WAS NOT ABLE TO LOCATE HER.
[2022-02-21] MEDS: diatr meglu/diatrizoate 30ml oral sol.-(3 dose) bottle PO SCH ×3 (12:41→13:52)
[2022-02-21] MEDS ORDERED: IOHEXOL 12MG/ML oral solution 500 ML BOTTLE PO ONE (12:45)
[2022-02-21 13:52] VITALS: BP 124/88
[2022-02-21 14:42] LABS: CLARITY,URINE CLEAR (Clear); GLUCOSE, URINE NEGATIVE (Neg); KETONES,URINE NEGATIVE (Neg); LEUKOCYTE ESTERASE ,URINE SMALL (Neg); NITRITES, URINE NEGATIVE (Neg); OCCULT BLOOD,URINE NEGATIVE (Neg); PROTEIN,URINE NEGATIVE (Neg); UROBILINOGEN,URINE 0.2 E.U/dL (0.2-1.0)
[2022-02-21 14:45] LABS: URINE HCG NEGATIVE (NEG)
[2022-02-21 14:46] LABS: COLOR,URINE STRAW (Yellow); UA COLLECTION TYPE CLN CATCH MIDSTREAM
[2022-02-21 14:50] LABS: BACTERIA,URINE FEW /HPF (Neg); MUCUS STRANDS NONE SEEN /LPF (Neg); RBC,URINE NONE SEEN /HPF (0-2); SQUAMOUS EPITHELIAL CELL,UR FEW /LPF (FEW); TRANSITIONAL EPI CELLS,URINE FEW /HPF; WBC,URINE 0-4 /HPF (0-4)
== END 2022-02-21 15:57 | disposition home or self-care (01) ==
LOC: ER 08:22
DX: K59.00 Constipation, unspecified (principal); R11.10 Vomiting, unspecified; I10 Essential (primary) hypertension; Z87.19 Personal history of other diseases of the digestive system; G89.29 Other chronic pain; M54.9 Dorsalgia, unspecified; F32.A Depression, unspecified; Z90.49 Acquired absence of other specified parts of digestive tract; F12.10 Cannabis abuse, uncomplicated; Z88.2 Allergy status to sulfonamides; Z79.899 Other long term (current) drug therapy; Z79.1 Long term (current) use of non-steroidal anti-inflammatories (NSAID)
CPT/HCPCS: 36415; 74176; 80053; 81001; 81025; 83690; 85025; 87077; 87088; 99284; Q9963